=== PATIENT | male | born 1970 | race Two or more races ===

== ENCOUNTER 2018-10-01 15:10 | Inpatient (IN) | payer OTHER ==
[2018-10-01 19:14] VITALS: BMI 27.8
--- NOTE | 2018-10-01 19:49 | HP ---
COWS - Scale Resting Pulse: 1= ID [id number] Sweatin= Chills/Flushing Restless Observation: 1= Difficult to Sit Still Pupil Size: 1= Pupils >than Normal Bone or Joint Aches: 2= Severe Diffuse Aches Runny Nose/ Eye Tearin= Runny Nose/Eyes GI Upset > 30mins: 2= Nausea/Diarrhea Tremor Observation: 1= Tremor [place], Not Seen Yawning Observation: 1= 1-2x During Session Anxiety or Irritability: 1=Feels Anxious/Irritable Goose Flesh Skin: 0=Smooth Skin COWS Score: 13 CIWA Score - Admission Criteria [facility]ASAS Guidelines: Admission for Medically Managed Detox: Requires at least one of the followin. CIWA greater than 12 2. Seizures within the past 24 hours 3. Delirium tremens within the past 24 hours 4. Hallucinations within the past 24 hours 5. Acute intervention needed for co occurring medical disorder 6. Acute intervention needed for co occurring psychiatric disorder 7. Severe withdrawal that cannot be handled at a lower level of care (continued vomiting, continued diarrhea, abnormal vital signs) requiring intravenous medication and/or fluids 8. Admission [facility] - HPI Chief Complaint: here for heroin detox 47 yo with BPH and HTN. Was in a methadone program but stopped going about 3 weeks ago-"just stopped going" becuase of homelessness Using heroin 1 bundle a day, IV- injects in arms, 1 week ago OD "just woke up' Alcohol occ 6 pack of beer- but this is not a problem for pt cocaine- 1 gram a day THC- occ BZO- denies Allergies/Adverse Reactions: Allergies Allergy/AdvReac Type Severity Reaction Status Date / Time No Known Allergies Allergy Verified 10/01/18 19:01 - Ebola screening Have you traveled outside of the country in the last 21 days: No (N) Have you had contact with anyone from an Ebola affected area: No Do you have a fever: No Patient History - Patient Medical History Hx Asthma: No Hx Chronic Obstructive Pulmonary Disease (COPD): No Hx Cardiac Disorders: No Hx Hypertension: Yes (HTN- ) Hx Seizures: No Hx Diabetes: No Hx Gastrointestinal Disorders: No Hx Genitourinary Disorders: Yes (BPH) Hx Sexually Transmitted Disorders: No Hx Renal Disease (ESRD): No Hx Human Immunodeficiency Virus (HIV): No Hx Hepatitis C: No Hx Depression: No Hx Suicide Attempt: No Hx Schizophrenia: No - Patient Surgical History Past Surgical History: Yes Hx Neurologic Surgery: No Hx Cataract Extraction: No Hx Cardiac Surgery: No Hx Lung Surgery: No Hx Breast Surgery: No Hx Breast Biopsy: No Hx Abdominal Surgery: Yes (R inguinal hernia repair in 2009) Hx Appendectomy: No Hx Cholecystectomy: No Hx Genitourinary Surgery: No Hx Section: No Hx Orthopedic Surgery: No Anesthesia Reaction: No - PPD History Date: 10/03/11 - Smoking Cessation Smoking history: Current every day smoker Have you smoked in the past 12 months: Yes Aproximately how many cigarettes per day: 20 Hx Chewing Tobacco Use: No Initiated information on smoking cessation: Yes 'Breaking Loose' booklet given: 10/01/18 - Substance & Tx. History Substance Use Type: Alcohol, Cocaine, Heroin, Marijuana, Opiates Hx Substance Use Treatment: Yes - Substances abused Heroin Substance route: Injection Frequency: Daily Amount used: 1 bundle Age of first use: 15 Date of last use: 10/01/18 Cocaine Substance route: Injection Frequency: Daily Amount used: 40 dollars Age of first use: 15 Date of last use: 10/01/18 Crack Substance route: Smoking Frequency: Daily Amount used: 1 gram Age of first use: 15 Date of last use: 10/01/18 Alcohol Substance route: Smoking Frequency: Daily Amount used: 12 packs Age of first use: 13 Date of last use: 10/01/18 Family Disease History - Family Disease History Family History: Denies (denies) Admission Physical Exam BHS - Vital Signs Vital Signs: Vital Signs - 24 hr 10/01/18 19:07 Temperature 98.9 F Pulse Rate 68 Respiratory 20 Rate Blood Pressure 128/75 - Physical General Appearance: Yes: Within Normal Limits, Disheveled HEENTM: Yes: Within Normal Limits, Hearing grossly Normal, Normal Voice, ERICK Respiratory: Yes: Within Normal Limits, Lungs Clear Neck: Yes: Within Normal Limits Cardiology: Yes: Within Normal Limits, Regular Rhythm, Regular Rate, S1, S2, Surgical Scar Back: Yes: Within Normal Limits, Normal Inspection Musculoskeletal: Yes: Within Normal Limits, full range of Motion, Gait Steady Neurological: Yes: Within Normal Limits, track sweeper II-XII NML intact, Fully Oriented, Alert, Motor Strength 5/5, Normal Response Integumentary: Yes: Within Normal Limits, Normal Color, Track [place] - Diagnostic (1) Opioid use disorder Current Visit: Yes Status: Acute (2) Cocaine use disorder Current Visit: Yes Status: Acute (3) Hypertension Current Visit: Yes Status: Acute (4) BPH (benign prostatic hyperplasia) Current Visit: Yes Status: Acute (5) Cannabis abuse Current Visit: Yes Status: Acute (6) Alcohol use Current Visit: Yes Status: Acute Breathalyzer - Breathalyzer Breathalyzer: 0 Urine Drug Screen - Test Device Lot number: [id number] Expiration date: 09/21/19 - Control Is test valid?: Yes - Results Drug screen NEGATIVE: No Urine drug screen results: THC-Marijuana, BILL-Cocaine, FEN-Fentanyl, MOP-Opiates , MTD-Methadone, BZO-Benzodiazepines Inpatient Rehab Admission - Rehab Decision to Admit Inpatient rehab admission?: No
[2018-10-01] MEDS ORDERED: IBUPROFEN 400 MG TABLET (FP) PO PRN (19:51)
[2018-10-01] MEDS ORDERED: MAG HYDROX/AL HYDROX/SIMETH 30 ML UNIT-DOSE CUP PO PRN (19:51)
[2018-10-01] MEDS ORDERED: MELATONIN 5 MG TABLETS PO PRN (19:51)
[2018-10-01] MEDS ORDERED: METHOCARBAMOL 500 MG TABLET PO PRN (19:51)
[2018-10-01] MEDS ORDERED: MAGNESIUM CITRATE 300 ML BOTTLE PO PRN (19:51)
[2018-10-01] MEDS ORDERED: hydrOXYzine PAMOATE 25 MG CAPSULE (FP) PO PRN (19:51)
[2018-10-01] MEDS ORDERED: MAGNESIUM HYDROX 2400MG/30ML ORAL SUSPENSION 30 ML CUP PO PRN (19:51)
[2018-10-01] MEDS ORDERED: cloNIDine HCL 0.1 MG TABLET PO PRN (19:51)
[2018-10-01] MEDS ORDERED: BISMUTH SUBSALICYLATE 262 MG/15 ML BTL PO PRN (19:51)
[2018-10-01] MEDS ORDERED: MENTHOL/PHENOL 1 EACH UD MM PRN (19:51)
[2018-10-01] MEDS ORDERED: ACETAMINOPHEN 325 MG TABLET (FP) PO PRN ×2 (19:51)
[2018-10-01] MEDS ORDERED: NICOTINE POLACRILEX 4 MG GUM BUC PRN (19:51)
[2018-10-01] MEDS ORDERED: ONDANSETRON *ODT* 4 MG TABLET SL PRN (19:51)
[2018-10-01] MEDS ORDERED: METHADONE HCL 10 MG TABLET (FOR DETOX USE ONLY) PO ONE (23:00)
[2018-10-01] MEDS: THIAMINE HCL 100 MG TABLET (FP) PO SCH (23:27)
[2018-10-01 23:34] LABS: PH,URINE 6.5 (5.0-8.0); URINE APPEARANCE CLEAR; URINE BILIRUBIN NEGATIVE (NEGATIVE); URINE COLOR DK YELLOW; URINE GLUCOSE (UA) NEGATIVE (NEGATIVE); URINE KETONE TRACE (NEGATIVE); URINE LEUK ESTERASE NEGATIVE (NEGATIVE); URINE NITRITE NEGATIVE (NEGATIVE); URINE PROTEIN NEGATIVE (NEGATIVE)
[2018-10-02] MEDS: clonazePAM 0.5 MG TABLET PO PRN (01:24)
[2018-10-02] MEDS ORDERED: METHADONE HCL 10 MG TABLET (FOR DETOX USE ONLY) PO ONE (10:00)
[2018-10-02 10:16] LABS: HEMATOCRIT 37.7 % (35.4-49); HEMOGLOBIN 12.6 GM/dL (11.7-16.9); MCH 29.6 pg (25.7-33.7); MCHC 33.5 g/dl (32.0-35.9); MEAN CELL VOLUME 88.3 fl (80-96); MEAN PLT VOLUME 8.1 fl (7.5-11.1); PLATELET COUNT 230 K/MM3 (134-434); RBC 4.27 M/mm3 (4.00-5.60); RDW 13.4 % (11.9-15.9); WHITE BLOOD COUNT 8.7 K/mm3 (4.0-10.0)
[2018-10-02 10:19] LABS: ALBUMIN 3.2 g/dl (3.4-5.0); ALK PHOS 92 U/L (45-117); ANION GAP 3 MMOL/L (8-16); BILIRUBIN,TOTAL 0.2 mg/dL (0.2-1); BLOOD UREA NITROGEN 18 mg/dL (7-18); CALCIUM 8.7 mg/dL (8.5-10.1); CHLORIDE 110 mmol/L (98-107); CO2 28 mmol/L (21-32); CREATININE 0.8 mg/dL (0.55-1.3); GLUCOSE,RANDOM 100 mg/dL (74-106); SGOT/AST 38 U/L (15-37); SGPT/ALT 57 U/L (13-61); SODIUM 141 mmol/L (136-145); TOT PROT 6.9 g/dl (6.4-8.2)
[2018-10-02] MEDS: PRENATAL VITAMINS W/ FOLIC ACID TABLET (FP) PO SCH (11:21)
--- NOTE | 2018-10-02 11:40 | PN ---
BHS COWS - Scale Resting Pulse: 0= PA 80 or Below Sweatin=Flushed/Facial Moisture Restless Observation: 1= Difficult to Sit Still Pupil Size: 0= Normal to Room Light Bone or Joint Aches: 2= Severe Diffuse Aches Runny Nose/ Eye Tearin= Runny Nose/Eyes GI Upset > 30mins: 1= Stomach Cramp Tremor Observation of Outstretched Hands: 2= Slight Tremor Visible Yawning Observation: 2= >3x During Session Anxiety or Irritability: 2=Irritable/Anxious Goose Flesh Skin: 0=Smooth Skin COWS Score: 14 BHS Progress Note (SOAP) Subjective: sweats shakes interrupted sleep body aches irritable anxiety agitation Objective: 10/02/18 11:39 Vital Signs Temperature 97.7 F 10/02/18 09:23 Pulse Rate 79 10/02/18 09:23 Respiratory Rate 18 10/02/18 09:23 Blood Pressure 136/87 10/02/18 09:23 O2 Sat by Pulse Oximetry (%) Laboratory Tests 10/01/18 10/02/18 10/02/18 23:20 07:00 07:00 WBC 8.7 RBC 4.27 Hgb 12.6 Hct 37.7 MCV 88.3 MCH 29.6 MCHC 33.5 RDW 13.4 Plt Count 230 MPV 8.1 D Sodium 141 Potassium 4.0 Chloride 110 H Carbon Dioxide 28 Anion Gap 3 L BUN 18 Creatinine 0.8 Creat Clearance w eGFR 103.18 Random Glucose 100 Calcium 8.7 Total Bilirubin 0.2 AST 38 H ALT 57 Alkaline Phosphatase 92 Total Protein 6.9 Albumin 3.2 L Urine Color Dk yellow Urine Appearance Clear Urine pH 6.[address] 1.026 Urine Protein Negative Urine Glucose (UA) Negative Urine Ketones Trace H Urine Blood Negative Urine Nitrite Negative Urine Bilirubin Negative Urine Urobilinogen 1.0 Ur Leukocyte Esterase Negative RPR Titer 10/02/18 08:50 WBC RBC Hgb Hct MCV MCH MCHC RDW Plt Count MPV Sodium Potassium Chloride Carbon Dioxide Anion Gap BUN Creatinine Creat Clearance w eGFR Random Glucose Calcium Total Bilirubin AST ALT Alkaline Phosphatase Total Protein Albumin Urine Color Urine Appearance Urine pH Ur Specific [address] Urine Protein Urine Glucose (UA) Urine Ketones Urine Blood Urine Nitrite Urine Bilirubin Urine Urobilinogen Ur Leukocyte Esterase RPR Titer Nonreactive aaox3 ambulating no acute distress Assessment: 10/02/18 11:39 withdrawal sx Plan: continue detox increase fluids
[2018-10-02] MEDS: THIAMINE HCL 100 MG TABLET (FP) PO SCH (22:29)
[2018-10-03] MEDS ORDERED: METHADONE HCL 10 MG TABLET (FOR DETOX USE ONLY) PO ONE (10:00)
[2018-10-03] MEDS: PRENATAL VITAMINS W/ FOLIC ACID TABLET (FP) PO SCH (10:24)
[2018-10-03] MEDS ORDERED: BACLOFEN 10 MG TABLET (FP) PO ONE (12:22)
[2018-10-03] MEDS ORDERED: ALBUTEROL SO4 8 GM HFA INHALER IH PRN (12:23)
[2018-10-03] MEDS ORDERED: cloNIDine HCL 0.1 MG TABLET PO PRN (12:24)
[2018-10-03] MEDS ORDERED: LIDOCAINE 5% TOPICAL PATCH TP ONE (14:00)
--- NOTE | 2018-10-03 14:15 | PN ---
S COWS - Scale Resting Pulse: 1= [place] [id number] Sweatin=Flushed/Facial Moisture Restless Observation: 1= Difficult to Sit Still Pupil Size: 0= Normal to Room Light Bone or Joint Aches: 2= Severe Diffuse Aches Runny Nose/ Eye Tearin= Nasal Congestion GI Upset > 30mins: 0= None Tremor Observation of Outstretched Hands: 2= Slight Tremor Visible Yawning Observation: 1= 1-2x During Session Anxiety or Irritability: 2=Irritable/Anxious Goose Flesh Skin: 0=Smooth Skin COWS Score: 12 S Progress Note (SOAP) Subjective: body aches muscle spasms sweats interrupted sleep Objective: 10/03/18 14:15 Vital Signs Temperature 98.2 F 10/03/18 09:23 Pulse Rate 81 10/03/18 09:23 Respiratory Rate 20 10/03/18 09:23 Blood Pressure 156/87 10/03/18 09:23 O2 Sat by Pulse Oximetry (%) Laboratory Tests 10/01/18 10/02/18 10/02/18 23:20 07:00 07:00 WBC 8.7 RBC 4.27 Hgb 12.6 Hct 37.7 MCV 88.3 MCH 29.6 MCHC 33.5 RDW 13.4 Plt Count 230 MPV 8.1 D Sodium 141 Potassium 4.0 Chloride 110 H Carbon Dioxide 28 Anion Gap 3 L BUN 18 Creatinine 0.8 Creat Clearance w eGFR 103.18 Random Glucose 100 Calcium 8.7 Total Bilirubin 0.2 AST 38 H ALT 57 Alkaline Phosphatase 92 Total Protein 6.9 Albumin 3.2 L Urine Color Dk yellow Urine Appearance Clear Urine pH 6.5 Ur Specific [place] 1.026 Urine Protein Negative Urine Glucose (UA) Negative Urine Ketones Trace H Urine Blood Negative Urine Nitrite Negative Urine Bilirubin Negative Urine Urobilinogen 1.0 Ur Leukocyte Esterase Negative RPR Titer 10/02/18 08:50 WBC RBC Hgb Hct MCV MCH MCHC RDW Plt Count MPV Sodium Potassium Chloride Carbon Dioxide Anion Gap BUN Creatinine Creat Clearance w eGFR Random Glucose Calcium Total Bilirubin AST ALT Alkaline Phosphatase Total Protein Albumin Urine Color Urine Appearance Urine pH Ur Specific [place] Urine Protein Urine Glucose (UA) Urine Ketones Urine Blood Urine Nitrite Urine Bilirubin Urine Urobilinogen Ur Leukocyte Esterase RPR Titer Nonreactive aaox3 ambulating no acute distress Assessment: 10/03/18 14:15 withdrawal sx Plan: continue detox increase fluids lidocaine patch baclofen motrin prn
[2018-10-03] MEDS: TAMSULOSIN HCL 0.4 MG CAP PO SCH (14:29)
[2018-10-03] MEDS: amLODIPine BESYLATE 10 MG TABLET (FP) PO SCH (14:29)
[2018-10-03] MEDS: BACLOFEN 10 MG TABLET (FP) PO SCH ×2 (14:29→22:34)
[2018-10-03] MEDS: IBUPROFEN 600 MG TABLET (FP) PO PRN (19:35)
[2018-10-03] MEDS ORDERED: LIDOCAINE PATCH REMOVAL MC SCH (22:00)
[2018-10-03] MEDS: THIAMINE HCL 100 MG TABLET (FP) PO SCH (22:35)
[2018-10-04] MEDS: BACLOFEN 10 MG TABLET (FP) PO SCH ×2 (06:10→13:32)
[2018-10-04] MEDS: IBUPROFEN 600 MG TABLET (FP) PO PRN ×2 (06:13→14:49)
[2018-10-04] MEDS: TAMSULOSIN HCL 0.4 MG CAP PO SCH (07:32)
[2018-10-04] MEDS: PRENATAL VITAMINS W/ FOLIC ACID TABLET (FP) PO SCH (09:54)
[2018-10-04] MEDS: amLODIPine BESYLATE 10 MG TABLET (FP) PO SCH (09:54)
[2018-10-04] MEDS ORDERED: LIDOCAINE 5% TOPICAL PATCH TP SCH (10:00)
[2018-10-04] MEDS ORDERED: METHADONE HCL 10 MG TABLET (FOR DETOX USE ONLY) PO ONE (10:00)
[2018-10-04 11:26] VITALS: TEMP 98.1
--- NOTE | 2018-10-04 12:51 | PN ---
S Progress Note (SOAP) Subjective: N/V/D, tremors and sweats Objective: 10/04/18 12:50 Vital Signs - 8 hr 10/04/18 10/04/18 06:34 10:00 Temperature 97.3 F L 98.1 F Pulse Rate 65 92 H Respiratory 18 20 Rate Blood Pressure 137/85 139/89 Laboratory Last Values WBC 8.7 K/mm3 (4.0-10.0) 10/02/18 07:00 RBC 4.27 M/mm3 (4.00-5.60) 10/02/18 07:00 Hgb 12.6 GM/dL (11.7-16.9) 10/02/18 07:00 Hct 37.7 % (35.4-49) 10/02/18 07:00 MCV 88.3 fl (80-96) 10/02/18 07:00 MCH 29.6 pg (25.7-33.7) 10/02/18 07:00 MCHC 33.5 g/dl (32.0-35.9) 10/02/18 07:00 RDW 13.4 % (11.9-15.9) 10/02/18 07:00 Plt Count 230 K/MM3 (134-434) 10/02/18 07:00 MPV 8.1 fl (7.5-11.1) D 10/02/18 07:00 Sodium 141 mmol/L (136-145) 10/02/18 07:00 Potassium 4.0 mmol/L (3.5-5.1) 10/02/18 07:00 Chloride 110 mmol/L (98-107) H 10/02/18 07:00 Carbon Dioxide 28 mmol/L (21-32) 10/02/18 07:00 Anion Gap 3 MMOL/L (8-16) L 10/02/18 07:00 BUN 18 mg/dL (7-18) 10/02/18 07:00 Creatinine 0.8 mg/dL (0.55-1.3) 10/02/18 07:00 Creat Clearance w eGFR 103.18 (>60) 10/02/18 07:00 Random Glucose 100 mg/dL (74-106) 10/02/18 07:00 Calcium 8.7 mg/dL (8.5-10.1) 10/02/18 07:00 Total Bilirubin 0.2 mg/dL (0.2-1) 10/02/18 07:00 AST 38 U/L (15-37) H 10/02/18 07:00 ALT 57 U/L (13-61) 10/02/18 07:00 Alkaline Phosphatase 92 U/L (45-117) 10/02/18 07:00 Total Protein 6.9 g/dl (6.4-8.2) 10/02/18 07:00 Albumin 3.2 g/dl (3.4-5.0) L 10/02/18 07:00 Urine Color Dk yellow 10/01/18 23:20 Urine Appearance Clear 10/01/18 23:20 Urine pH 6.5 (5.0-8.0) 10/01/18 23:20 Ur Specific [place] 1.026 (1.010-1.035) 10/01/18 23:20 Urine Protein Negative (NEGATIVE) 10/01/18 23:20 Urine Glucose (UA) Negative (NEGATIVE) 10/01/18 23:20 Urine Ketones Trace (NEGATIVE) H 10/01/18 23:20 Urine Blood Negative (NEGATIVE) 10/01/18 23:20 Urine Nitrite Negative (NEGATIVE) 10/01/18 23:20 Urine Bilirubin Negative (NEGATIVE) 10/01/18 23:20 Urine Urobilinogen 1.0 mg/dL (0.2-1.0) 10/01/18 23:20 Ur Leukocyte Esterase Negative (NEGATIVE) 10/01/18 23:20 RPR Titer Nonreactive (NONREACTIVE) 10/02/18 08:50 Labs noted Assessment: Withdrawal sx 10/04/18 12:50 Plan: Continue detox
[2018-10-04 14:31] VITALS: BP 125/74; PULSE 80
[2018-10-04] MEDS: clonazePAM 0.5 MG TABLET PO PRN (14:49)
--- NOTE | 2018-10-04 17:51 | PN ---
S Progress Note Note: patient did not want to complete treatment,signed release ama,high chance of relapsing, advise to to go to emergency room if any problem
--- NOTE | 2018-10-04 17:54 | DS ---
[facility] Detox Discharge Summary Admission Date: 10/01/18 Discharge Date: 10/04/18 - History Present History: Alcohol Dependence, Cannabis Dependence, Cocaine Dependence, Opioid Dependence Additional Comments: patient signed release ama Pertinent Past History: hypertension bph - Physical Exam Results Vital Signs: Vital Signs Temperature 98.1 F 10/04/18 14:30 Pulse Rate 80 10/04/18 14:30 Respiratory Rate 18 10/04/18 14:30 Blood Pressure 125/74 10/04/18 14:30 O2 Sat by Pulse Oximetry (%) Pertinent Admission Physical Exam Findings: withdrawal symptom Vital Signs Temperature 98.1 F 10/04/18 14:30 Pulse Rate 80 10/04/18 14:30 Respiratory Rate 18 10/04/18 14:30 Blood Pressure 125/74 10/04/18 14:30 O2 Sat by Pulse Oximetry (%) Laboratory Last Values WBC 8.7 K/mm3 (4.0-10.0) 10/02/18 07:00 RBC 4.27 M/mm3 (4.00-5.60) 10/02/18 07:00 Hgb 12.6 GM/dL (11.7-16.9) 10/02/18 07:00 Hct 37.7 % (35.4-49) 10/02/18 07:00 MCV 88.3 fl (80-96) 10/02/18 07:00 MCH 29.6 pg (25.7-33.7) 10/02/18 07:00 MCHC 33.5 g/dl (32.0-35.9) 10/02/18 07:00 RDW 13.4 % (11.9-15.9) 10/02/18 07:00 Plt Count 230 K/MM3 (134-434) 10/02/18 07:00 MPV 8.1 fl (7.5-11.1) D 10/02/18 07:00 Sodium 141 mmol/L (136-145) 10/02/18 07:00 Potassium 4.0 mmol/L (3.5-5.1) 10/02/18 07:00 Chloride 110 mmol/L (98-107) H 10/02/18 07:00 Carbon Dioxide 28 mmol/L (21-32) 10/02/18 07:00 Anion Gap 3 MMOL/L (8-16) L 10/02/18 07:00 BUN 18 mg/dL (7-18) 10/02/18 07:00 Creatinine 0.8 mg/dL (0.55-1.3) 10/02/18 07:00 Creat Clearance w eGFR 103.18 (>60) 10/02/18 07:00 Random Glucose 100 mg/dL (74-106) 10/02/18 07:00 Calcium 8.7 mg/dL (8.5-10.1) 10/02/18 07:00 Total Bilirubin 0.2 mg/dL (0.2-1) 10/02/18 07:00 AST 38 U/L (15-37) H 10/02/18 07:00 ALT 57 U/L (13-61) 10/02/18 07:00 Alkaline Phosphatase 92 U/L (45-117) 10/02/18 07:00 Total Protein 6.9 g/dl (6.4-8.2) 10/02/18 07:00 Albumin 3.2 g/dl (3.4-5.0) L 10/02/18 07:00 Urine Color Dk yellow 10/01/18 23:20 Urine Appearance Clear 10/01/18 23:20 Urine pH 6.5 (5.0-8.0) 10/01/18 23:20 Ur Specific [place] 1.026 (1.010-1.035) 10/01/18 23:20 Urine Protein Negative (NEGATIVE) 10/01/18 23:20 Urine Glucose (UA) Negative (NEGATIVE) 10/01/18 23:20 Urine Ketones Trace (NEGATIVE) H 10/01/18 23:20 Urine Blood Negative (NEGATIVE) 10/01/18 23:20 Urine Nitrite Negative (NEGATIVE) 10/01/18 23:20 Urine Bilirubin Negative (NEGATIVE) 10/01/18 23:20 Urine Urobilinogen 1.0 mg/dL (0.2-1.0) 10/01/18 23:20 Ur Leukocyte Esterase Negative (NEGATIVE) 10/01/18 23:20 RPR Titer Nonreactive (NONREACTIVE) 10/02/18 08:50 - Medication Discharge Medications: Ambulatory Orders Albuterol Sulfate Inhaler - [Ventolin Hfa Inhaler -] 2 inh PO Q4H PRN 10/01/18 Amlodipine Besylate [Norvasc -] 10 mg PO DAILY 10/01/18 Folic Acid 1 mg PO DAILY 10/01/18 Quetiapine Fumarate [Seroquel] 100 mg PO HS 10/01/18 Tamsulosin HCl [Flomax] 0.4 mg PO DAILY 10/01/18 Thiamine HCl [Vitamin B-1] 100 mg PO DAILY 10/01/18 - AMA Did Patient Leave Against Medical Advice: Yes
[2018-10-05] MEDS ORDERED: METHADONE HCL 5 MG TABLET (FOR DETOX USE ONLY) PO ONE (06:00)
== END 2018-10-04 17:30 | disposition left against medical advice (07) | DRG 770 ==
LOC: YASAS 15:10 → Y6N 20:11
PROVIDERS: ADMIT Surgery; ATTEND Surgery
PROC: HZ2ZZZZ Detoxification Services for Substance Abuse Treatment (ICD-10-PCS; principal; 2018-10-01)
DX: F11.23 Opioid dependence with withdrawal (principal); F10.230 Alcohol dependence with withdrawal, uncomplicated; F14.20 Cocaine dependence, uncomplicated; F12.20 Cannabis dependence, uncomplicated; I10 Essential (primary) hypertension; N40.0 Benign prostatic hyperplasia without lower urinary tract symptoms
CPT/HCPCS: 36415; 80053; 81003; 85027; 86593; J0475; J0735

== ENCOUNTER 2018-11-28 08:26 | Inpatient (IN) | payer BC ==
--- NOTE | 2018-11-28 10:05 | HP ---
COWS - Scale Resting Pulse: 0= NM 80 or Below Sweatin= No chills or Flushing Restless Observation: 1= Difficult to Sit Still Pupil Size: 0= Normal to Room Light Bone or Joint Aches: 1= Mild Discomfort Runny Nose/ Eye Tearin= None GI Upset > 30mins: 2= Nausea/Diarrhea Tremor Observation: 0= None Yawning Observation: 0= None Anxiety or Irritability: 2=Irritable/Anxious Goose Flesh Skin: 0=Smooth Skin COWS Score: 6 CIWA Score Nausea/Vomitin Muscle Tremors: None Anxiety: 0-No Anxiety, at Ease Agitation: 4-Moderately Restless Paroxysmal Sweats: No Perspiration Orientation: 0-Oriented Tacttile Disturbances: 2-Mild Itch/Numbness/Burn Auditory Disturbances: 0-None Visual Disturbances: 0-None Headache: 0-None Present CIWA-Ar Total Score: 9 - Admission Criteria OASAS Guidelines: Admission for Medically Managed Detox: Requires at least one of the followin. CIWA greater than 12 2. Seizures within the past 24 hours 3. Delirium tremens within the past 24 hours 4. Hallucinations within the past 24 hours 5. Acute intervention needed for co occurring medical disorder 6. Acute intervention needed for co occurring psychiatric disorder 7. Severe withdrawal that cannot be handled at a lower level of care (continued vomiting, continued diarrhea, abnormal vital signs) requiring intravenous medication and/or fluids 8. Admission ROS [facility] Allergies/Adverse Reactions: Allergies Allergy/AdvReac Type Severity Reaction Status Date / Time No Known Allergies Allergy Verified 11/28/18 08:58 History of Present Illness: Search Terms: enrike campbell, 1970 Search Date: 11/28/2018 09:50:03 AM The Drug Utilization Report below displays all of the controlled substance prescriptions, if any, that your patient has filled in the last twelve months. The information displayed on this report is compiled from pharmacy submissions to the Department, and accurately reflects the information as submitted by the pharmacies. This report was requested by: Manasa Beckford | Reference #: [id number] Others' Prescriptions Patient Name: Enrike Campbell Date: 1970 Address: [place] [address] Sex: Male Rx Written Rx Dispensed Drug Quantity Days Supply Prescriber Name 11/06/2018 11/06/2018 buprenorphine-naloxone 8-2 mg sl film 60 30 Hedrick, Angela [employer] 11/04/2018 11/04/2018 buprenorphine-naloxone 12-3 mg sl film 14 14 Luís Soliz) 10/30/2018 10/30/2018 buprenorphine-naloxone 8-2 mg sl film 14 14 Angela Hedrick NP 10/27/2018 10/27/2018 diazepam 10 mg tablet 5 5 Luís Soliz) 10/27/2018 10/27/2018 buprenorphine-naloxone 4-1 mg sl film 12 6 Luís Soliz () Patient Name: Enrike Campbell Date: 1970 Address: [address] [place] [address] Sex: Male Rx Written Rx Dispensed Drug Quantity Days Supply Prescriber Name 06/21/2018 07/05/2018 dextroamp-amphetamin 30 mg tab 60 30 ValbrunLew MD 06/21/2018 07/03/2018 zolpidem tartrate 10 mg tablet 30 30 ValbrunLew MD 06/21/2018 07/03/2018 alprazolam 2 mg tablet 60 30 ValbrunLew MD 05/17/2018 05/17/2018 alprazolam 2 mg tablet 60 30 ValbrunLew MD 05/17/2018 05/17/2018 zolpidem tartrate 10 mg tablet 30 30 ValbrLew phelps MD 05/17/2018 05/17/2018 dextroamp-amphetamin 30 mg tab 60 30 ValbrunLew MD 04/12/2018 04/12/2018 alprazolam 2 mg tablet 60 30 ValbrunLew MD 04/12/2018 04/12/2018 dextroamp-amphetamin 30 mg tab 60 30 ValbrunLew MD 04/12/2018 04/12/2018 zolpidem tartrate 10 mg tablet 30 30 ValbrLew phelps MD 02/01/2018 02/01/2018 alprazolam 2 mg tablet 60 30 ValbrLew phelps MD 02/01/2018 02/01/2018 zolpidem tartrate 10 mg tablet 30 30 ValbrunLew MD 02/01/2018 02/01/2018 dextroamp-amphetamin 30 mg tab 60 30 ValbrLew phelps MD 12/28/2017 01/04/2018 dextroamp-amphetamin 30 mg tab 60 30 Lew Raplh MD 12/28/2017 01/04/2018 alprazolam 2 mg tablet 60 30 ValLew diop MD 12/28/2017 01/04/2018 zolpidem tartrate 10 mg tablet 30 30 ValbrLew phelps MD 12/07/2017 12/07/2017 alprazolam 2 mg tablet 60 30 ValbrunLew MD 12/07/2017 12/07/2017 zolpidem tartrate 10 mg tablet 30 30 ValbrunLew MD 12/07/2017 12/07/2017 dextroamp-amphetamin 30 mg tab 60 30 Lew Ralph MD pt here requesting detox from heroin use , reports use since 1987 , current daily use 2 bundles /day ivdu in [place]anisha ue , needles from [facility] , denies sharing , denies re-using , + abscess most recently > 1 year ago , OD x 3 most recently " I don't remember " . Pt is very guarded and evasive when answering questions , after prompting mostly answers " I don't remember " . Queried about [employer] above , initially denies rx , then admits to having Suboxone and taking it , latest 2 days ago . Latest heroin use yesterday late evening " I still have it in my system , the symptoms are just starting " MMTP : " I don't remember , probably 6 mo ago " @ [facility] , highest dose 90 mg , stopped going cocaine : 1 gr /day ivdu cannabis : occasional tobacco : 1 ppd oxy- denies fentanyl - denies methadone- denies denies xanax use etoh use : 12-pk beer every day x 1 year , starts drinking around noon , reports cravings , irritability , denies tremors , + blackouts , denies seizures , latest use last night , current symptoms as above. PMHX : htn dx " a few years " on meds , BPH PSHX : tanisha inguinal hernia , pancreatic cyst 2012 ( [facility] ) PSych : ptsd , depression , anxiety - past meds Seroquel while in rehab SHX : homeless , unemployed , denies legal issues , fiances habit through [facility] - handling Exam Limitations: No Limitations - Ebola screening Have you traveled outside of the country in the last 21 days: No (N) Have you had contact with anyone from an Ebola affected area: No Do you have a fever: No - Review of Systems Constitutional: See HPI EENT: reports: See HPI Respiratory: reports: No Symptoms reported Cardiac: reports: No Symptoms Reported GI: reports: See HPI : reports: Other (bph - hesitancy) Musculoskeletal: reports: See HPI Neuro: reports: See HPI Endocrine: reports: No Symptoms Reported Psychiatric: reports: Mood/Affect Appropiate, Orientated x3, Anxious Patient History - Patient Medical History Hx Asthma: No Hx Chronic Obstructive Pulmonary Disease (COPD): No Hx Cardiac Disorders: No Hx Hypertension: Yes (HTN- ) Hx Seizures: No Hx Diabetes: No Hx Gastrointestinal Disorders: No Hx Genitourinary Disorders: Yes (BPH) Hx Sexually Transmitted Disorders: No Hx Renal Disease (ESRD): No Hx Human Immunodeficiency Virus (HIV): No Hx Hepatitis C: No Hx Depression: No Hx Suicide Attempt: No Hx Schizophrenia: No - Patient Surgical History Past Surgical History: Yes Hx Neurologic Surgery: No Hx Cataract Extraction: No Hx Cardiac Surgery: No Hx Lung Surgery: No Hx Breast Surgery: No Hx Breast Biopsy: No Hx Abdominal Surgery: Yes (R inguinal hernia repair in 2008) Hx Appendectomy: No Hx Cholecystectomy: No Hx Genitourinary Surgery: No Hx Section: No Hx Orthopedic Surgery: No Anesthesia Reaction: No - PPD History Date: 10/03/11 - Smoking Cessation Smoking history: Current every day smoker Have you smoked in the past 12 months: Yes Aproximately how many cigarettes per day: 20 Hx Chewing Tobacco Use: No Initiated information on smoking cessation: No - Substances abused Heroin Substance route: Injection Frequency: Daily Amount used: 2 bundle Age of first use: 15 Date of last use: 11/27/18 Cocaine Substance route: Injection Frequency: Daily Amount used: 40 dollars Age of first use: 15 Date of last use: 11/27/18 Crack Substance route: Smoking Frequency: Daily Amount used: 1 gram Age of first use: 15 Date of last use: 11/27/18 Alcohol Substance route: Oral Frequency: Daily Amount used: 12 packs Age of first use: 13 Date of last use: 11/27/18 Family Disease History - Family Disease History Family History: Denies Admission Physical Exam BHS - Vital Signs Vital Signs: Vital Signs - 24 hr 11/28/18 08:46 Temperature 96.6 F L Pulse Rate 73 Respiratory 18 Rate Blood Pressure 129/73 - Physical General Appearance: Yes: Disheveled, Mild Distress, Irritable, Anxious, Other ( drowsy , falls asleep frequently during interview , awakened by verbal stimuli) HEENTM: Yes: EOMI, Hearing grossly Normal, Normocephalic, Normal Voice Respiratory: Yes: Chest Non-Tender, Lungs Clear, Normal Breath Sounds, No Respiratory Distress, No Accessory Muscle Use Neck: Yes: No masses,lesions,Nodules, Trachea in good position Cardiology: Yes: Regular Rhythm, Regular Rate, S1, S2 Abdominal: Yes: Non Tender, Soft Musculoskeletal: Yes: full range of Motion Extremities: Yes: Normal Range of Motion, Non-Tender Neurological: Yes: Fully Oriented, Motor Strength 5/5, Other (drowsy , falls askeep frequently during interview, awakened by verbal stimuli) Integumentary: Yes: Warm, Track Alfaro (tanisha UE , LE) - Diagnostic (1) Alcohol use Current Visit: Yes Status: Chronic (2) Opioid use disorder Current Visit: Yes Status: Chronic (3) Nicotine dependence Current Visit: Yes Status: Chronic Qualifiers: Nicotine product type: cigarettes (4) Cocaine use disorder Current Visit: Yes Status: Chronic Breathalyzer - Breathalyzer Breathalyzer: 0 Urine Drug Screen - Test Device Lot number: [id number] Expiration date: 08/21/20 - Control Is test valid?: Yes - Results Drug screen NEGATIVE: No Urine drug screen results: THC-Marijuana, BILL-Cocaine, FEN-Fentanyl, MOP-Opiates , OXY-Oxycodone, MTD-Methadone, BZO-Benzodiazepines, BUP-Suboxone Inpatient Rehab Admission - Rehab Decision to Admit Inpatient rehab admission?: No
[2018-11-28] MEDS ORDERED: chlordiazePOXIDE HCL 10 MG CAPSULE PO PRN (11:01)
[2018-11-28] MEDS ORDERED: MENTHOL/PHENOL 1 EACH UD MM PRN (11:01)
[2018-11-28] MEDS ORDERED: MAG HYDROX/AL HYDROX/SIMETH 30 ML UNIT-DOSE CUP PO PRN (11:01)
[2018-11-28] MEDS ORDERED: IBUPROFEN 400 MG TABLET (FP) PO PRN (11:01)
[2018-11-28] MEDS ORDERED: ACETAMINOPHEN 325 MG TABLET (FP) PO PRN ×2 (11:01)
[2018-11-28] MEDS ORDERED: METHOCARBAMOL 500 MG TABLET PO PRN (11:01)
[2018-11-28] MEDS ORDERED: MAGNESIUM HYDROX 2400MG/30ML ORAL SUSPENSION 30 ML CUP PO PRN (11:01)
[2018-11-28] MEDS ORDERED: BISMUTH SUBSALICYLATE 524 MG/30 ML UD PO PRN (11:01)
[2018-11-28] MEDS ORDERED: MAGNESIUM CITRATE 300 ML BOTTLE PO PRN (11:01)
[2018-11-28] MEDS ORDERED: NICOTINE POLACRILEX 2 MG GUM BUC PRN (11:01)
[2018-11-28] MEDS ORDERED: hydrOXYzine PAMOATE 25 MG CAPSULE (FP) PO PRN (11:01)
[2018-11-28] MEDS ORDERED: ALBUTEROL SO4 0.083% IH SOL 2.5 MG/3 ML VIAL.NEB. NEB PRN (11:03)
[2018-11-28] MEDS: chlordiazePOXIDE HCL 25 MG CAPSULE PO SCH ×2 (12:21→22:38)
[2018-11-28] MEDS: MELATONIN 5 MG TABLETS PO PRN (22:38)
[2018-11-28] MEDS: THIAMINE HCL 100 MG TABLET (FP) PO SCH (23:11)
[2018-11-29] MEDS: chlordiazePOXIDE HCL 25 MG CAPSULE PO SCH (06:13)
[2018-11-29] MEDS: BUPRENORPHINE/NALOXONE 8 MG/2 MG FILM PACKET SL SCH (10:07)
[2018-11-29] MEDS: amLODIPine BESYLATE 10 MG TABLET (FP) PO SCH (10:07)
[2018-11-29] MEDS: TAMSULOSIN HCL 0.4 MG CAP PO SCH (10:07)
[2018-11-29] MEDS: PRENATAL VITAMINS W/ FOLIC ACID TABLET (FP) PO SCH (10:07)
[2018-11-29 10:43] LABS: BILIRUBIN,TOTAL 0.3 mg/dL (0.2-1); BLOOD UREA NITROGEN 17.4 mg/dL (7-18); CALCIUM 8.4 mg/dL (8.5-10.1); CREATININE 1.1 mg/dL (0.55-1.3); TOT PROT 6.8 g/dl (6.4-8.2)
[2018-11-29 11:53] LABS: HEMATOCRIT 36.4 % (35.4-49); HEMOGLOBIN 12.2 GM/dL (11.7-16.9); MCH 29.2 pg (25.7-33.7); MCHC 33.3 g/dl (32.0-35.9); MEAN CELL VOLUME 87.6 fl (80-96); MEAN PLT VOLUME 8.7 fl (7.5-11.1); RBC 4.16 M/mm3 (4.00-5.60); RDW 14.3 % (11.9-15.9); WHITE BLOOD COUNT 6.7 K/mm3 (4.0-10.0)
[2018-11-29] MEDS: chlordiazePOXIDE 5 MG CAPSULE PO SCH ×2 (13:38→23:10)
[2018-11-29 17:01] LABS: PLATELET COUNT 234 K/MM3 (134-434)
[2018-11-29] MEDS: THIAMINE HCL 100 MG TABLET (FP) PO SCH (23:09)
[2018-11-29] MEDS: MELATONIN 5 MG TABLETS PO PRN (23:10)
[2018-11-30] MEDS: chlordiazePOXIDE 5 MG CAPSULE PO SCH (05:29)
[2018-11-30] MEDS ORDERED: LIDOCAINE 5% TOPICAL PATCH TP SCH (10:00)
[2018-11-30] MEDS: amLODIPine BESYLATE 10 MG TABLET (FP) PO SCH (10:03)
[2018-11-30] MEDS: TAMSULOSIN HCL 0.4 MG CAP PO SCH (10:03)
[2018-11-30] MEDS: BUPRENORPHINE/NALOXONE 8 MG/2 MG FILM PACKET SL SCH (10:03)
[2018-11-30] MEDS: PRENATAL VITAMINS W/ FOLIC ACID TABLET (FP) PO SCH (10:03)
--- NOTE | 2018-11-30 11:42 | PN ---
S CIWA - CIWA Score Nausea/Vomitin-Mild Nausea/No Vomiting Muscle Tremors: 4-Moderate,w/Arms Extend Anxiety: 4-Mod. Anxious/Guarded Agitation: 4-Moderately Restless Paroxysmal Sweats: 3 Orientation: 0-Oriented Tacttile Disturbances: 0-None Auditory Disturbances: 0-None Visual Disturbances: 0-None Headache: 0-None Present CIWA-Ar Total Score: 16 BHS Progress Note (SOAP) Subjective: Back pain, sweating, chills, tremor, interrupted sleep, anxious Objective: 11/30/18 11:39 Last Vital Signs Temp Pulse Resp BP Pulse Ox 97.7 F 79 18 135/77 11/30/18 09:08 11/30/18 09:08 11/30/18 09:08 11/30/18 09:08 Elevated b/p: has htn, on medication Laboratory Tests 11/29/18 11/29/18 11/29/18 08:00 08:00 08:00 WBC 6.7 RBC 4.16 Hgb 12.2 Hct 36.4 MCV 87.6 MCH 29.2 MCHC 33.3 RDW 14.3 Plt Count 234 MPV 8.7 Sodium 142 Potassium 4.0 Chloride 109 H Carbon Dioxide 26 Anion Gap 7 L BUN 17.4 Creatinine 1.1 Est GFR (CKD-EPI)AfAm 91.52 Est GFR (CKD-EPI)NonAf 78.96 Random Glucose 114 H Calcium 8.4 L Total Bilirubin 0.3 AST 35 ALT 53 Alkaline Phosphatase 112 Total Protein 6.8 Albumin 3.0 L RPR Titer Nonreactive HIV 1&2 Antibody Screen HIV P24 Antigen 11/29/18 08:00 WBC RBC Hgb Hct MCV MCH MCHC RDW Plt Count MPV Sodium Potassium Chloride Carbon Dioxide Anion Gap BUN Creatinine Est GFR (CKD-EPI)AfAm Est GFR (CKD-EPI)NonAf Random Glucose Calcium Total Bilirubin AST ALT Alkaline Phosphatase Total Protein Albumin RPR Titer HIV 1&2 Antibody Screen Negative HIV P24 Antigen Negative Labs reviewed Assessment: 11/30/18 11:42 Withdrawal symptoms Plan: Continue detox Encouraged PO water hydration Lidocaine patch 5% q24hr ordered for back pain
[2018-11-30] MEDS ORDERED: chlordiazePOXIDE HCL 10 MG CAPSULE PO SCH (13:00)
[2018-11-30] MEDS ORDERED: chlordiazePOXIDE HCL 10 MG CAPSULE PO PRN (13:00)
[2018-11-30 17:19] VITALS: BP 138/77; PULSE 71; TEMP 100
--- NOTE | 2018-11-30 19:16 | PN ---
BHS CIWA - CIWA Score Nausea/Vomitin Muscle Tremors: 2 Anxiety: 2 Agitation: 2 Paroxysmal Sweats: 1-Minimal Palms Moist Orientation: 0-Oriented Tacttile Disturbances: 1-Very Mild Itch/Numbness Auditory Disturbances: 1-Very Mild Visual Disturbances: 0-None Headache: 2-Mild CIWA-Ar Total Score: 13 BHS Progress Note (SOAP) Subjective: alert,irritable,anxious,tremor,pain in the body and back Objective: 11/30/18 19:14 t97.9,p87,r20,bp 127/102 Assessment: 11/30/18 19:15 withdrawal symptom Plan: continue detox,bp monitoring
--- NOTE | 2018-11-30 19:20 | DS ---
[facility] Detox Discharge Summary Admission Date: 11/28/18 Discharge Date: 11/30/18 - History Present History: Alcohol Dependence, Cannabis Dependence, Cocaine Dependence, Opioid Dependence Additional Comments: patient signed release ama Pertinent Past History: asthma hypertension bph suboxone maintenance - Physical Exam Results Vital Signs: Vital Signs Temperature 100.0 F H 11/30/18 17:17 Pulse Rate 71 11/30/18 17:17 Respiratory Rate 16 11/30/18 17:17 Blood Pressure 138/77 11/30/18 17:17 O2 Sat by Pulse Oximetry (%) Pertinent Admission Physical Exam Findings: withdrawal signs and symptom Vital Signs Temperature 100.0 F H 11/30/18 17:17 Pulse Rate 71 11/30/18 17:17 Respiratory Rate 16 11/30/18 17:17 Blood Pressure 138/77 11/30/18 17:17 O2 Sat by Pulse Oximetry (%) Laboratory Last Values WBC 6.7 K/mm3 (4.0-10.0) 11/29/18 08:00 RBC 4.16 M/mm3 (4.00-5.60) 11/29/18 08:00 Hgb 12.2 GM/dL (11.7-16.9) 11/29/18 08:00 Hct 36.4 % (35.4-49) 11/29/18 08:00 MCV 87.6 fl (80-96) 11/29/18 08:00 MCH 29.2 pg (25.7-33.7) 11/29/18 08:00 MCHC 33.3 g/dl (32.0-35.9) 11/29/18 08:00 RDW 14.3 % (11.9-15.9) 11/29/18 08:00 Plt Count 234 K/MM3 (134-434) 11/29/18 08:00 MPV 8.7 fl (7.5-11.1) 11/29/18 08:00 Sodium 142 mmol/L (136-145) 11/29/18 08:00 Potassium 4.0 mmol/L (3.5-5.1) 11/29/18 08:00 Chloride 109 mmol/L (98-107) H 11/29/18 08:00 Carbon Dioxide 26 mmol/L (21-32) 11/29/18 08:00 Anion Gap 7 MMOL/L (8-16) L 11/29/18 08:00 BUN 17.4 mg/dL (7-18) 11/29/18 08:00 Creatinine 1.1 mg/dL (0.55-1.3) 11/29/18 08:00 Est GFR (CKD-EPI)AfAm 91.52 11/29/18 08:00 Est GFR (CKD-EPI)NonAf 78.96 11/29/18 08:00 Random Glucose 114 mg/dL (74-106) H 11/29/18 08:00 Calcium 8.4 mg/dL (8.5-10.1) L 11/29/18 08:00 Total Bilirubin 0.3 mg/dL (0.2-1) 11/29/18 08:00 AST 35 U/L (15-37) 11/29/18 08:00 ALT 53 U/L (13-61) 11/29/18 08:00 Alkaline Phosphatase 112 U/L (45-117) 11/29/18 08:00 Total Protein 6.8 g/dl (6.4-8.2) 11/29/18 08:00 Albumin 3.0 g/dl (3.4-5.0) L 11/29/18 08:00 RPR Titer Nonreactive (NONREACTIVE) 11/29/18 08:00 HIV 1&2 Antibody Screen Negative 11/29/18 08:00 HIV P24 Antigen Negative 11/29/18 08:00 - Medication Discharge Medications: Ambulatory Orders Albuterol Sulfate Inhaler - [Ventolin HFA Inhaler -] 2 inh PO Q4H PRN 10/01/18 Amlodipine Besylate [Norvasc -] 10 mg PO DAILY 10/01/18 Folic Acid 1 mg PO DAILY 10/01/18 Quetiapine Fumarate [Seroquel] 100 mg PO HS 10/01/18 Tamsulosin HCl [Flomax] 0.4 mg PO DAILY 10/01/18 Thiamine HCl [Vitamin B-1] 100 mg PO DAILY 10/01/18 - AMA Did Patient Leave Against Medical Advice: Yes
--- NOTE | 2018-11-30 19:20 | PN ---
[facility] Progress Note Note: informed by nurse patient did not want to complete treatment,all attempts to convince patient to stay with no avail,high risk of relapsing explained, patient understood,seen by counselor,signed release ama,advise to go to nearest emergency room or 911 if not feeling well
[2018-11-30] MEDS ORDERED: LIDOCAINE PATCH REMOVAL MC SCH (22:00)
== END 2018-11-30 19:25 | disposition left against medical advice (07) | DRG 770 ==
LOC: YASAS 08:26 → Y6N 11:18
PROVIDERS: ADMIT Surgery; ATTEND Surgery
PROC: HZ2ZZZZ Detoxification Services for Substance Abuse Treatment (ICD-10-PCS; principal; 2018-11-28)
DX: F10.230 Alcohol dependence with withdrawal, uncomplicated (principal); F11.20 Opioid dependence, uncomplicated; F13.20 Sedative, hypnotic or anxiolytic dependence, uncomplicated; F14.20 Cocaine dependence, uncomplicated; F12.20 Cannabis dependence, uncomplicated; F41.8 Other specified anxiety disorders; F31.9 Bipolar disorder, unspecified; I10 Essential (primary) hypertension; J45.909 Unspecified asthma, uncomplicated; N40.1 Benign prostatic hyperplasia with lower urinary tract symptoms; R39.11 Hesitancy of micturition
CPT/HCPCS: 36415; 80053; 85027; 86593; 87389

== ENCOUNTER 2019-02-13 16:45 | Inpatient (IN) | payer BC ==
[2019-02-13 18:05] VITALS: BMI 25.1
--- NOTE | 2019-02-13 19:12 | HP ---
COWS - Scale Resting Pulse: 0= [place] 80 or Below Sweatin=Flushed/Facial Moisture Restless Observation: 0= Sits Still Pupil Size: 0= Normal to Room Light Bone or Joint Aches: 4=Acute Joint/Muscle Pain Runny Nose/ Eye Tearin= Runny Nose/Eyes GI Upset > 30mins: 2= Nausea/Diarrhea Tremor Observation: 1= Tremor [place], Not Seen Yawning Observation: 1= 1-2x During Session Anxiety or Irritability: 2=Irritable/Anxious Goose Flesh Skin: 0=Smooth Skin COWS Score: 14 CIWA Score - Admission Criteria OASAS Guidelines: Admission for Medically Managed Detox: Requires at least one of the followin. CIWA greater than 12 2. Seizures within the past 24 hours 3. Delirium tremens within the past 24 hours 4. Hallucinations within the past 24 hours 5. Acute intervention needed for co occurring medical disorder 6. Acute intervention needed for co occurring psychiatric disorder 7. Severe withdrawal that cannot be handled at a lower level of care (continued vomiting, continued diarrhea, abnormal vital signs) requiring intravenous medication and/or fluids 8. Admission ROS [facility] Chief Complaint: C/O WITHDRAWAL SX'S. SEEKING DETOX Allergies/Adverse Reactions: Allergies Allergy/AdvReac Type Severity Reaction Status Date / Time No Known Allergies Allergy Verified 02/13/19 17:56 History of Present Illness: 48 Y.O. MALE WITH OPIOID DEPENDENCE HERE FOR DETOX. CLIENT IS SELF REFERRED HE IS KNOWN TO THIS PROGRAM. HIS DRUG OF CHOICE IS HEROIN AND COCAINE. HE REPORTS DAILY USE OF HEROIN. LAST USE THIS MORNING. PRESENTS NOW WITH C/O WITHDRAWAL SX'S. IVDU,+ HX/O OVERDOSE, DENIES SZ D/O. LONGEST CLEAN TIME 2 YEARS. RELAPSING IN 2014. DENIES CLEAN TIME SINCE. HOMELESS, UNEMPLOYED- PANHANDLING, DENIES LEGALS Exam Limitations: No Limitations - Ebola screening Have you traveled outside of the country in the last 21 days: No (N) Have you had contact with anyone from an Ebola affected area: No Do you have a fever: No - Review of Systems Constitutional: Chills, Malaise, Night Sweats, Changes in sleep, Unintentional Wgt. Loss EENT: reports: Nose Congestion (RUNNY NOSE), Other (WATERY EYES) Respiratory: reports: No Symptoms reported Cardiac: reports: No Symptoms Reported GI: reports: Diarrhea, Nausea, Poor Appetite, Poor Fluid Intake, Vomiting, Abdominal cramping : reports: Other (HESITANCY DUE TO ENLARGED PROSTATE) Musculoskeletal: reports: Back Pain, Joint Pain, Neck Pain Integumentary: reports: Sweating Neuro: reports: Numbness (FINGERS AND FEET) Endocrine: reports: No Symptoms Reported Hematology: reports: No Symptoms Reported Psychiatric: reports: Agitated (IRRITABLE), Depressed (DENIES SI) Other Systems: Reviewed and Negative Patient History - Patient Medical History Hx Anemia: No Hx Asthma: No Hx Chronic Obstructive Pulmonary Disease (COPD): No Hx Cancer: No Hx Cardiac Disorders: No Hx Congestive Heart Failure: No Hx Hypertension: Yes (HTN- ) Hx Hypercholesterolemia: No Hx Pacemaker: No HX Cerebrovascular Accident: No Hx Seizures: No Hx Dementia: No Hx Diabetes: No Hx Gastrointestinal Disorders: No Hx Liver Disease: No Hx Genitourinary Disorders: Yes (BPH) Hx Sexually Transmitted Disorders: No Hx Renal Disease (ESRD): No Hx Thyroid Disease: No Hx Human Immunodeficiency Virus (HIV): No Hx Hepatitis C: No Hx Depression: Yes Hx Suicide Attempt: No Hx Bipolar Disorder: No Hx Schizophrenia: No Other Medical History: PTSD, ANXIETY - Patient Surgical History Past Surgical History: Yes Hx Neurologic Surgery: No Hx Cataract Extraction: No Hx Cardiac Surgery: No Hx Lung Surgery: No Hx Breast Surgery: No Hx Breast Biopsy: No Hx Abdominal Surgery: Yes (R inguinal hernia repair in 2008) Hx Appendectomy: No Hx Cholecystectomy: No Hx Genitourinary Surgery: No Hx Section: No Hx Orthopedic Surgery: No Anesthesia Reaction: No - PPD History Previous Implant?: Yes Documented Results: Negative w/proof Implanted On Prior R Admission?: Yes Date: 10/03/11 Results: 0MM PPD to be Administered?: Yes - Smoking Cessation Smoking history: Current every day smoker Have you smoked in the past 12 months: Yes Aproximately how many cigarettes per day: 20 Hx Chewing Tobacco Use: No Initiated information on smoking cessation: Yes 'Breaking Loose' booklet given: 02/13/19 - Substance & Tx. History Hx Alcohol Use: No Hx Substance Use: Yes Substance Use Type: Cocaine, Heroin Hx Substance Use Treatment: Yes ([facility]) - Substances abused Heroin Substance route: Injection Frequency: Daily Amount used: 1 bundle Age of first use: 15 Date of last use: 02/13/19 (5) Cocaine Substance route: Injection Frequency: Daily Amount used: 40 dollars Age of first use: 15 Date of last use: 02/12/19 Crack Substance route: Smoking Frequency: Daily Amount used: 1 gram Age of first use: 15 Date of last use: 02/12/19 Family Disease History - Family Disease History Family History: Denies Admission Physical Exam [facility] - Vital Signs Vital Signs: Vital Signs - 24 hr 02/13/19 17:55 Temperature 99.0 F Pulse Rate 57 L Respiratory 16 Rate Blood Pressure 160/91 - Physical General Appearance: Yes: Moderate Distress, Tremorous (FELT), Irritable, Anxious HEENTM: Yes: EOMI, Normocephalic, Normal Voice, ERICK, Pharynx Normal, Other ( TRACK POTTER TO NECK) Respiratory: Yes: Chest Non-Tender, Lungs Clear, No Respiratory Distress, No Accessory Muscle Use Neck: Yes: No masses,lesions,Nodules, Supple Breast: Yes: Breast Exam Deferred Cardiology: Yes: Regular Rhythm, Regular Rate, S1, S2 Abdominal: Yes: Normal Bowel Sounds, Non Tender, Soft Genitourinary: Yes: Hesitency (BPH) Back: Yes: Normal Inspection Musculoskeletal: Yes: Gait Steady Extremities: Yes: Normal Capillary Refill, Tremors, Pedal Edema (LLE 1= PITTING) Neurological: Yes: Fully Oriented, Alert, Motor Strength 5/5, Normal Mood/Affect Integumentary: Yes: Dry, Warm, Pitting Edema (LLE), Track [place], Other ( SCATTERED AREAS OF ABRASION AND SCABBING) Lymphatic: Yes: Within Normal Limits - Diagnostic (1) Opioid dependence with withdrawal Current Visit: Yes Status: Acute (2) Cannabis abuse, uncomplicated Current Visit: Yes Status: Acute (3) Cocaine dependence, uncomplicated Current Visit: Yes Status: Acute (4) IVDU (intravenous drug user) Current Visit: Yes Status: Acute (5) Non compliance w medication regimen Current Visit: Yes Status: Acute (6) Homeless Current Visit: Yes Status: Acute (7) BPH (benign prostatic hyperplasia) Current Visit: No Status: Acute (8) Hypertension Current Visit: No Status: Acute (9) Nicotine dependence Current Visit: No Status: Chronic Qualifiers: Nicotine product type: cigarettes Cleared for Admission [facility] - Detox or Rehab [facility] Level of Care: Medically Managed Detox Regimen/Protocol: Methadone Claeared for Rehab Admission: No Breathalyzer - Breathalyzer Breathalyzer: 0 Urine Drug Screen - Test Device Lot number: [id number] Expiration date: 08/21/20 - Control Is test valid?: Yes - Results Drug screen NEGATIVE: No Urine drug screen results: THC-Marijuana, BILL-Cocaine, FEN-Fentanyl, MOP-Opiates , OXY-Oxycodone, MTD-Methadone, BZO-Benzodiazepines, BUP-Suboxone Inpatient Rehab Admission - Rehab Decision to Admit Inpatient rehab admission?: No
[2019-02-13] MEDS ORDERED: MAG HYDROX/AL HYDROX/SIMETH 30 ML UNIT-DOSE CUP PO PRN (19:22)
[2019-02-13] MEDS ORDERED: BISMUTH SUBSALICYLATE 524 MG/30 ML UD PO PRN (19:22)
[2019-02-13] MEDS ORDERED: METHADONE HCL 10 MG TABLET (FOR DETOX USE ONLY) PO ONE (19:22)
[2019-02-13] MEDS ORDERED: MAGNESIUM HYDROX 2400MG/30ML ORAL SUSPENSION 30 ML CUP PO PRN (19:22)
[2019-02-13] MEDS ORDERED: guaiFENesin 200 MG/10 ML 10 ML UNIT-DOSE CUPS PO PRN (19:22)
[2019-02-13] MEDS ORDERED: P-EPHED 60MG/TRIPROLIDI 2.5MG TABLET PO PRN (19:22)
[2019-02-13] MEDS ORDERED: NALOXONE HCL 0.4 MG/ML VIAL IM PRN (19:22)
[2019-02-13] MEDS ORDERED: ACETAMINOPHEN 325 MG TABLET (FP) PO PRN (19:22)
[2019-02-13] MEDS ORDERED: cloNIDine HCL 0.1 MG TABLET PO PRN (19:22)
[2019-02-13] MEDS ORDERED: MENTHOL/PHENOL 1 EACH UD MM PRN (19:22)
[2019-02-13] MEDS ORDERED: DICYCLOMINE HCL 10 MG CAPSULE PO PRN (19:22)
[2019-02-13] MEDS ORDERED: ALBUTEROL SO4 8 GM HFA INHALER IH PRN (19:22)
[2019-02-13] MEDS ORDERED: ONDANSETRON *ODT* 4 MG TABLET SL PRN (19:22)
[2019-02-13] MEDS ORDERED: MAGNESIUM CITRATE 300 ML BOTTLE PO PRN (19:22)
[2019-02-13] MEDS: hydrOXYzine HCL 25 MG TABLET (FP) PO PRN (22:32)
[2019-02-13] MEDS: THIAMINE HCL 100 MG TABLET (FP) PO SCH (22:32)
[2019-02-14] MEDS ORDERED: METHADONE HCL 5 MG TABLET (FOR DETOX USE ONLY) ONE (09:43)
[2019-02-14] MEDS ORDERED: METHADONE HCL 10 MG TABLET (FOR DETOX USE ONLY) ONE (09:43)
[2019-02-14] MEDS ORDERED: METHADONE (DETOX) 20 MG, METHADONE (DETOX) 5 MG PO ONE (10:00)
--- NOTE | 2019-02-14 10:49 | CONSULT ---
[facility] Psychiatric Consult - Data Date of interview: 02/14/19 Admission source: [facility] Identifying data: Patient is approached by this medical writer, at bedside, for psychiatric evaluation. Mr Adrian is uncooperative (simply ignores the presence of MD). Nursing staff is made aware.
[2019-02-14 10:55] LABS: HEMATOCRIT 36.9 % (35.4-49); HEMOGLOBIN 12.3 GM/dL (11.7-16.9); MCH 29.5 pg (25.7-33.7); MCHC 33.4 g/dl (32.0-35.9); MEAN CELL VOLUME 88.4 fl (80-96); MEAN PLT VOLUME 9.4 fl (7.5-11.1); RBC 4.17 M/mm3 (4.00-5.60); RDW 14.4 % (11.9-15.9); WHITE BLOOD COUNT 6.7 K/mm3 (4.0-10.0)
[2019-02-14] MEDS: amLODIPine BESYLATE 10 MG TABLET (FP) PO SCH (10:55)
[2019-02-14] MEDS: PRENATAL VITAMINS W/ FOLIC ACID TABLET (FP) PO SCH (10:55)
[2019-02-14] MEDS: NICOTINE 21 MG/24 HOURS TOPICAL PATCH TD SCH (10:56)
[2019-02-14] MEDS: TAMSULOSIN HCL 0.4 MG CAP PO SCH (10:56)
[2019-02-14 11:06] LABS: ALBUMIN 2.9 g/dl (3.4-5.0); BILIRUBIN,TOTAL 0.5 mg/dL (0.2-1); BLOOD UREA NITROGEN 15.4 mg/dL (7-18); CALCIUM 8.4 mg/dL (8.5-10.1); CREATININE 0.8 mg/dL (0.55-1.3); POTASSIUM 3.8 mmol/L (3.5-5.1); TOT PROT 6.4 g/dl (6.4-8.2)
[2019-02-14 11:21] LABS: PLATELET COUNT 192 K/MM3 (134-434)
--- NOTE | 2019-02-14 15:50 | PN ---
[facility]HS COWS - Scale Resting Pulse: 0= CT 80 or Below Sweatin= Chills/Flushing Restless Observation: 1= Difficult to Sit Still Pupil Size: 0= Normal to Room Light Bone or Joint Aches: 0= None Runny Nose/ Eye Tearin= Nasal Congestion GI Upset > 30mins: 0= None Tremor Observation of Outstretched Hands: 2= Slight Tremor Visible Yawning Observation: 1= 1-2x During Session Anxiety or Irritability: 2=Irritable/Anxious Goose Flesh Skin: 3=Piloerection COWS Score: 11 S Progress Note (SOAP) Subjective: Anxious, Fatigue, Nasal Congestion, Tremors. Objective: PATIENT A & O X 3, OBSERVED AMBULATING ON UNIT UNASSISTED. IN NO ACUTE DISTRESS. 02/14/19 15:49 Vital Signs Temperature 99.2 F 02/14/19 13:13 Pulse Rate 65 02/14/19 13:13 Respiratory Rate 18 02/14/19 13:13 Blood Pressure 143/87 02/14/19 13:13 O2 Sat by Pulse Oximetry (%) Laboratory Tests 02/14/19 02/14/19 02/14/19 08:00 08:00 08:00 WBC 6.7 RBC 4.17 Hgb 12.3 Hct 36.9 MCV 88.4 MCH 29.5 MCHC 33.4 RDW 14.4 Plt Count 192 MPV 9.4 Sodium 142 Potassium 3.8 Chloride 107 Carbon Dioxide 29 Anion Gap 6 L BUN 15.4 Creatinine 0.8 Est GFR (CKD-EPI)AfAm 121.57 Est GFR (CKD-EPI)NonAf 104.89 Random Glucose 81 Calcium 8.4 L Total Bilirubin 0.5 AST 107 H ALT 132 H Alkaline Phosphatase 114 Total Protein 6.4 Albumin 2.9 L RPR Titer Nonreactive LABS NOTED. RESULTS OF DETOX ADMISSION QFT /TB TEST PENDING. Assessment: 02/14/19 15:49 WITHDRAWAL SYMPTOMS. ELEVATED AST LEVEL. [id number] ALT LEVEL. 02/14/19 15:49 Plan: CONTINUE DETOX.
[2019-02-14] MEDS: hydrOXYzine HCL 25 MG TABLET (FP) PO PRN (22:17)
[2019-02-14] MEDS: MELATONIN 5 MG TABLETS PO PRN (22:17)
[2019-02-14] MEDS: THIAMINE HCL 100 MG TABLET (FP) PO SCH (22:17)
[2019-02-15] MEDS ORDERED: METHADONE HCL 10 MG TABLET (FOR DETOX USE ONLY) PO ONE (10:00)
[2019-02-15] MEDS: TAMSULOSIN HCL 0.4 MG CAP PO SCH (10:34)
[2019-02-15] MEDS: NICOTINE 21 MG/24 HOURS TOPICAL PATCH TD SCH (10:35)
[2019-02-15] MEDS: amLODIPine BESYLATE 10 MG TABLET (FP) PO SCH (10:35)
[2019-02-15] MEDS: METHOCARBAMOL 500 MG TABLET PO PRN (10:35)
[2019-02-15] MEDS: PRENATAL VITAMINS W/ FOLIC ACID TABLET (FP) PO SCH (10:35)
--- NOTE | 2019-02-15 14:16 | PN ---
BHS COWS - Scale Resting Pulse: 0= [place] 80 or Below Sweatin= Chills/Flushing Restless Observation: 0= Sits Still Pupil Size: 1= Pupils >than Normal Bone or Joint Aches: 1= Mild Discomfort Runny Nose/ Eye Tearin= Nasal Congestion GI Upset > 30mins: 0= None Tremor Observation of Outstretched Hands: 2= Slight Tremor Visible Yawning Observation: 0= None Anxiety or Irritability: 1=Feels Anxious/Irritable Goose Flesh Skin: 3=Piloerection COWS Score: 10 BHS Progress Note (SOAP) Subjective: 48 years old male admitted on 02/13/19 for acute opiate withdrawal sx management doing well with methadone detox regimen ate 90% breakfast feeling ok tolerate food and fluid well feeling tired resting on bed Objective: 02/15/19 14:15 Vital Signs Temperature 96 F L 02/15/19 13:14 Pulse Rate 70 02/15/19 13:14 Respiratory Rate 20 02/15/19 13:14 Blood Pressure 125/71 02/15/19 13:14 O2 Sat by Pulse Oximetry (%) Laboratory Last Values WBC 6.7 K/mm3 (4.0-10.0) 02/14/19 08:00 RBC 4.17 M/mm3 (4.00-5.60) 02/14/19 08:00 Hgb 12.3 GM/dL (11.7-16.9) 02/14/19 08:00 Hct 36.9 % (35.4-49) 02/14/19 08:00 MCV 88.4 fl (80-96) 02/14/19 08:00 MCH 29.5 pg (25.7-33.7) 02/14/19 08:00 MCHC 33.4 g/dl (32.0-35.9) 02/14/19 08:00 RDW 14.4 % (11.9-15.9) 02/14/19 08:00 Plt Count 192 K/MM3 (134-434) 02/14/19 08:00 MPV 9.4 fl (7.5-11.1) 02/14/19 08:00 Sodium 142 mmol/L (136-145) 02/14/19 08:00 Potassium 3.8 mmol/L (3.5-5.1) 02/14/19 08:00 Chloride 107 mmol/L (98-107) 02/14/19 08:00 Carbon Dioxide 29 mmol/L (21-32) 02/14/19 08:00 Anion Gap 6 MMOL/L (8-16) L 02/14/19 08:00 BUN 15.4 mg/dL (7-18) 02/14/19 08:00 Creatinine 0.8 mg/dL (0.55-1.3) 02/14/19 08:00 Est GFR (CKD-EPI)AfAm 121.57 02/14/19 08:00 Est GFR (CKD-EPI)NonAf 104.89 02/14/19 08:00 Random Glucose 81 mg/dL (74-106) 02/14/19 08:00 Calcium 8.4 mg/dL (8.5-10.1) L 02/14/19 08:00 Total Bilirubin 0.5 mg/dL (0.2-1) 02/14/19 08:00 AST 107 U/L (15-37) H 02/14/19 08:00 ALT 132 U/L (13-61) H 02/14/19 08:00 Alkaline Phosphatase 114 U/L (45-117) 02/14/19 08:00 Total Protein 6.4 g/dl (6.4-8.2) 02/14/19 08:00 Albumin 2.9 g/dl (3.4-5.0) L 02/14/19 08:00 RPR Titer Nonreactive (NONREACTIVE) 02/14/19 08:00 lab noted Assessment: 02/15/19 14:16 opiate withdrawal sx Plan: continue methadone detox
[2019-02-15] MEDS: THIAMINE HCL 100 MG TABLET (FP) PO SCH (22:52)
[2019-02-16] MEDS ORDERED: METHADONE HCL 10 MG TABLET (FOR DETOX USE ONLY) ONE (09:08)
[2019-02-16] MEDS ORDERED: METHADONE HCL 5 MG TABLET (FOR DETOX USE ONLY) ONE (09:08)
[2019-02-16] MEDS: PRENATAL VITAMINS W/ FOLIC ACID TABLET (FP) PO SCH (09:42)
[2019-02-16] MEDS: amLODIPine BESYLATE 10 MG TABLET (FP) PO SCH (09:42)
[2019-02-16] MEDS: TAMSULOSIN HCL 0.4 MG CAP PO SCH (09:42)
[2019-02-16] MEDS: NICOTINE 21 MG/24 HOURS TOPICAL PATCH TD SCH (09:43)
[2019-02-16] MEDS ORDERED: METHADONE (DETOX) 10 MG, METHADONE (DETOX) 5 MG PO ONE (10:00)
[2019-02-16] MEDS: ACETAMINOPHEN 325 MG TABLET (FP) PO PRN (11:23)
--- NOTE | 2019-02-16 11:56 | PN ---
BHS COWS - Scale Resting Pulse: 0= [place] 80 or Below Sweatin= Chills/Flushing Restless Observation: 0= Sits Still Pupil Size: 1= Pupils >than Normal Bone or Joint Aches: 1= Mild Discomfort Runny Nose/ Eye Tearin= Nasal Congestion GI Upset > 30mins: 1= Stomach Cramp Tremor Observation of Outstretched Hands: 1= Tremor [place], Not Seen Yawning Observation: 1= 1-2x During Session Anxiety or Irritability: 1=Feels Anxious/Irritable Goose Flesh Skin: 0=Smooth Skin COWS Score: 8 S Progress Note (SOAP) Subjective: doing well with methadone detox regimen discuss medication assisted treatment program mild body aches less tremor sleep better at night Objective: 02/16/19 11:54 Vital Signs Temperature 97.1 F L 02/16/19 09:28 Pulse Rate 69 02/16/19 09:28 Respiratory Rate 15 02/16/19 09:28 Blood Pressure 130/82 02/16/19 09:28 O2 Sat by Pulse Oximetry (%) Laboratory Last Values WBC 6.7 K/mm3 (4.0-10.0) 02/14/19 08:00 RBC 4.17 M/mm3 (4.00-5.60) 02/14/19 08:00 Hgb 12.3 GM/dL (11.7-16.9) 02/14/19 08:00 Hct 36.9 % (35.4-49) 02/14/19 08:00 MCV 88.4 fl (80-96) 02/14/19 08:00 MCH 29.5 pg (25.7-33.7) 02/14/19 08:00 MCHC 33.4 g/dl (32.0-35.9) 02/14/19 08:00 RDW 14.4 % (11.9-15.9) 02/14/19 08:00 Plt Count 192 K/MM3 (134-434) 02/14/19 08:00 MPV 9.4 fl (7.5-11.1) 02/14/19 08:00 Sodium 142 mmol/L (136-145) 02/14/19 08:00 Potassium 3.8 mmol/L (3.5-5.1) 02/14/19 08:00 Chloride 107 mmol/L (98-107) 02/14/19 08:00 Carbon Dioxide 29 mmol/L (21-32) 02/14/19 08:00 Anion Gap 6 MMOL/L (8-16) L 02/14/19 08:00 BUN 15.4 mg/dL (7-18) 02/14/19 08:00 Creatinine 0.8 mg/dL (0.55-1.3) 02/14/19 08:00 Est GFR (CKD-EPI)AfAm 121.57 02/14/19 08:00 Est GFR (CKD-EPI)NonAf 104.89 02/14/19 08:00 Random Glucose 81 mg/dL (74-106) 02/14/19 08:00 Calcium 8.4 mg/dL (8.5-10.1) L 02/14/19 08:00 Total Bilirubin 0.5 mg/dL (0.2-1) 02/14/19 08:00 AST 107 U/L (15-37) H 02/14/19 08:00 ALT 132 U/L (13-61) H 02/14/19 08:00 Alkaline Phosphatase 114 U/L (45-117) 02/14/19 08:00 Total Protein 6.4 g/dl (6.4-8.2) 02/14/19 08:00 Albumin 2.9 g/dl (3.4-5.0) L 02/14/19 08:00 RPR Titer Nonreactive (NONREACTIVE) 02/14/19 08:00 lab noted encourage the patient bringing in lab report and medication list to [facility] for ast elevation follow up discuss opiate related ast elevation Assessment: opiate withdrawal sx alert oriented x 3 ate 90% breakfast tolerate food well ambulating on hallway Plan: continue methadone detox regimen
--- NOTE | 2019-02-16 13:02 | EKG ---
Test Reason : Blood Pressure : / mmHG Vent. Rate : 045 BPM Atrial Rate : 045 BPM P-R Int : 124 ms QRS Dur : 084 ms QT Int : 442 ms P-R-T Axes : -27 005 024 degrees QTc Int : 382 ms SINUS BRADYCARDIA OTHERWISE NORMAL ECG NO PREVIOUS ECGS AVAILABLE Confirmed by ZACKARY NARAYAN MD ([id number]) on 02/16/2019 1:02:11 PM Referred By: EREN Confirmed By:ZACKARY NARAYAN MD
[2019-02-16] MEDS: IBUPROFEN 400 MG TABLET (FP) PO PRN (18:20)
[2019-02-16] MEDS: NICOTINE POLACRILEX 2 MG GUM BUC PRN (18:22)
[2019-02-16] MEDS: THIAMINE HCL 100 MG TABLET (FP) PO SCH (22:05)
[2019-02-16] MEDS: METHOCARBAMOL 500 MG TABLET PO PRN (22:05)
[2019-02-16] MEDS: hydrOXYzine HCL 25 MG TABLET (FP) PO PRN (22:06)
[2019-02-16] MEDS: MELATONIN 5 MG TABLETS PO PRN (22:06)
[2019-02-17] MEDS: TAMSULOSIN HCL 0.4 MG CAP PO SCH (09:52)
[2019-02-17] MEDS: METHOCARBAMOL 500 MG TABLET PO PRN ×2 (09:52→22:17)
[2019-02-17] MEDS: NICOTINE POLACRILEX 2 MG GUM BUC PRN ×2 (09:52→16:56)
[2019-02-17] MEDS: ACETAMINOPHEN 325 MG TABLET (FP) PO PRN ×2 (09:52→18:00)
[2019-02-17] MEDS ORDERED: METHADONE HCL 10 MG TABLET (FOR DETOX USE ONLY) PO ONE (10:00)
[2019-02-17] MEDS: NICOTINE 21 MG/24 HOURS TOPICAL PATCH TD SCH (10:05)
[2019-02-17] MEDS: amLODIPine BESYLATE 10 MG TABLET (FP) PO SCH (10:06)
[2019-02-17] MEDS: PRENATAL VITAMINS W/ FOLIC ACID TABLET (FP) PO SCH (10:06)
[2019-02-17] MEDS: IBUPROFEN 400 MG TABLET (FP) PO PRN (13:16)
--- NOTE | 2019-02-17 13:35 | PN ---
BHS COWS - Scale Resting Pulse: 0= [place] 80 or Below Sweatin= Chills/Flushing Restless Observation: 0= Sits Still Pupil Size: 0= Normal to Room Light Bone or Joint Aches: 1= Mild Discomfort Runny Nose/ Eye Tearin= None GI Upset > 30mins: 0= None Tremor Observation of Outstretched Hands: 1= Tremor [place], Not Seen Yawning Observation: 1= 1-2x During Session Anxiety or Irritability: 1=Feels Anxious/Irritable Goose Flesh Skin: 0=Smooth Skin COWS Score: 5 BHS Progress Note (SOAP) Subjective: 48 years old male admitted on 02/13/19 for opiate withdrawal sx management doing well with methadone detox regimen sleep better at night better concentration discuss medication assisted treatment program Vital Signs Temperature 98.0 F 02/17/19 13:17 Pulse Rate 79 02/17/19 13:17 Respiratory Rate 18 02/17/19 13:17 Blood Pressure 137/83 02/17/19 13:17 O2 Sat by Pulse Oximetry (%) Laboratory Last Values WBC 6.7 K/mm3 (4.0-10.0) 02/14/19 08:00 RBC 4.17 M/mm3 (4.00-5.60) 02/14/19 08:00 Hgb 12.3 GM/dL (11.7-16.9) 02/14/19 08:00 Hct 36.9 % (35.4-49) 02/14/19 08:00 MCV 88.4 fl (80-96) 02/14/19 08:00 MCH 29.5 pg (25.7-33.7) 02/14/19 08:00 MCHC 33.4 g/dl (32.0-35.9) 02/14/19 08:00 RDW 14.4 % (11.9-15.9) 02/14/19 08:00 Plt Count 192 K/MM3 (134-434) 02/14/19 08:00 MPV 9.4 fl (7.5-11.1) 02/14/19 08:00 Sodium 142 mmol/L (136-145) 02/14/19 08:00 Potassium 3.8 mmol/L (3.5-5.1) 02/14/19 08:00 Chloride 107 mmol/L (98-107) 02/14/19 08:00 Carbon Dioxide 29 mmol/L (21-32) 02/14/19 08:00 Anion Gap 6 MMOL/L (8-16) L 02/14/19 08:00 BUN 15.4 mg/dL (7-18) 02/14/19 08:00 Creatinine 0.8 mg/dL (0.55-1.3) 02/14/19 08:00 Est GFR (CKD-EPI)AfAm 121.57 02/14/19 08:00 Est GFR (CKD-EPI)NonAf 104.89 02/14/19 08:00 Random Glucose 81 mg/dL (74-106) 02/14/19 08:00 Calcium 8.4 mg/dL (8.5-10.1) L 02/14/19 08:00 Total Bilirubin 0.5 mg/dL (0.2-1) 02/14/19 08:00 AST 107 U/L (15-37) H 02/14/19 08:00 ALT 132 U/L (13-61) H 02/14/19 08:00 Alkaline Phosphatase 114 U/L (45-117) 02/14/19 08:00 Total Protein 6.4 g/dl (6.4-8.2) 02/14/19 08:00 Albumin 2.9 g/dl (3.4-5.0) L 02/14/19 08:00 RPR Titer Nonreactive (NONREACTIVE) 02/14/19 08:00 lab noted patient agrees to bringing in lab result to primary care provider for ast elevation follow up history of hypertension and bph Objective: 02/17/19 13:33 Vital Signs opiate withdrawal sx alert oriented x 3 speech clearly hypertension managed by amlodipine bph controlled by flomax 02/17/19 13:35 Vital Signs Temperature 98.0 F 02/17/19 13:17 Pulse Rate 79 02/17/19 13:17 Respiratory Rate 18 02/17/19 13:17 Blood Pressure 137/83 02/17/19 13:17 O2 Sat by Pulse Oximetry (%) Laboratory Last Values WBC 6.7 K/mm3 (4.0-10.0) 02/14/19 08:00 RBC 4.17 M/mm3 (4.00-5.60) 02/14/19 08:00 Hgb 12.3 GM/dL (11.7-16.9) 02/14/19 08:00 Hct 36.9 % (35.4-49) 02/14/19 08:00 MCV 88.4 fl (80-96) 02/14/19 08:00 MCH 29.5 pg (25.7-33.7) 02/14/19 08:00 MCHC 33.4 g/dl (32.0-35.9) 02/14/19 08:00 RDW 14.4 % (11.9-15.9) 02/14/19 08:00 Plt Count 192 K/MM3 (134-434) 02/14/19 08:00 MPV 9.4 fl (7.5-11.1) 02/14/19 08:00 Sodium 142 mmol/L (136-145) 02/14/19 08:00 Potassium 3.8 mmol/L (3.5-5.1) 02/14/19 08:00 Chloride 107 mmol/L (98-107) 02/14/19 08:00 Carbon Dioxide 29 mmol/L (21-32) 02/14/19 08:00 Anion Gap 6 MMOL/L (8-16) L 02/14/19 08:00 BUN 15.4 mg/dL (7-18) 02/14/19 08:00 Creatinine 0.8 mg/dL (0.55-1.3) 02/14/19 08:00 Est GFR (CKD-EPI)AfAm 121.57 02/14/19 08:00 Est GFR (CKD-EPI)NonAf 104.89 02/14/19 08:00 Random Glucose 81 mg/dL (74-106) 02/14/19 08:00 Calcium 8.4 mg/dL (8.5-10.1) L 02/14/19 08:00 Total Bilirubin 0.5 mg/dL (0.2-1) 02/14/19 08:00 AST 107 U/L (15-37) H 02/14/19 08:00 ALT 132 U/L (13-61) H 02/14/19 08:00 Alkaline Phosphatase 114 U/L (45-117) 02/14/19 08:00 Total Protein 6.4 g/dl (6.4-8.2) 02/14/19 08:00 Albumin 2.9 g/dl (3.4-5.0) L 02/14/19 08:00 RPR Titer Nonreactive (NONREACTIVE) 02/14/19 08:00 lab noted Assessment: 02/17/19 13:35 opiate withdrawal sx 02/17/19 13:35 alert oriented x 3 denies chest pain no headaches no trouble urination Plan: continue methadone detox
[2019-02-17] MEDS: MELATONIN 5 MG TABLETS PO PRN (22:16)
[2019-02-17] MEDS: THIAMINE HCL 100 MG TABLET (FP) PO SCH (22:16)
[2019-02-18] MEDS ORDERED: METHADONE HCL 5 MG TABLET (FOR DETOX USE ONLY) PO ONE (06:00)
[2019-02-18 09:17] VITALS: BP 125/77; PULSE 87; TEMP 98.6
[2019-02-18] MEDS: amLODIPine BESYLATE 10 MG TABLET (FP) PO SCH (10:24)
[2019-02-18] MEDS: TAMSULOSIN HCL 0.4 MG CAP PO SCH (10:24)
[2019-02-18] MEDS: NICOTINE 21 MG/24 HOURS TOPICAL PATCH TD SCH (10:24)
[2019-02-18] MEDS: PRENATAL VITAMINS W/ FOLIC ACID TABLET (FP) PO SCH (10:24)
[2019-02-18] MEDS: METHOCARBAMOL 500 MG TABLET PO PRN (10:25)
[2019-02-18] MEDS: IBUPROFEN 400 MG TABLET (FP) PO PRN (10:25)
--- NOTE | 2019-02-18 14:09 | DS ---
[facility] Detox Discharge Summary Admission Date: 02/13/19 Discharge Date: 02/18/19 - History Present History: Opioid Dependence Additional Comments: 48 years old male 3rd patient [facility] admission since 2011 was admitted on 02/13/19 for opiate withdrawa sx management did well with methadone detox regimen no complication through out the detox stay seen by psychiatrist but refused engage conversation with the psychiatrist history of hypertension bp range from 120/70-140/90 denies chest pain no shortness of breath no wheezing bph denies urinary issue at this time patient is alert orietned x 3 steady gait skin warm and dry asthma controlled through ventolin prn Pertinent Past History: encourage the patient seeking medication assisted treatment program - Physical Exam Results Vital Signs: Vital Signs Temperature 98.6 F 02/18/19 09:16 Pulse Rate 87 02/18/19 09:16 Respiratory Rate 16 02/18/19 09:16 Blood Pressure 125/77 02/18/19 09:16 O2 Sat by Pulse Oximetry (%) Pertinent Admission Physical Exam Findings: opiate withdrawal sx Laboratory Last Values WBC 6.7 K/mm3 (4.0-10.0) 02/14/19 08:00 RBC 4.17 M/mm3 (4.00-5.60) 02/14/19 08:00 Hgb 12.3 GM/dL (11.7-16.9) 02/14/19 08:00 Hct 36.9 % (35.4-49) 02/14/19 08:00 MCV 88.4 fl (80-96) 02/14/19 08:00 MCH 29.5 pg (25.7-33.7) 02/14/19 08:00 MCHC 33.4 g/dl (32.0-35.9) 02/14/19 08:00 RDW 14.4 % (11.9-15.9) 02/14/19 08:00 Plt Count 192 K/MM3 (134-434) 02/14/19 08:00 MPV 9.4 fl (7.5-11.1) 02/14/19 08:00 Sodium 142 mmol/L (136-145) 02/14/19 08:00 Potassium 3.8 mmol/L (3.5-5.1) 02/14/19 08:00 Chloride 107 mmol/L (98-107) 02/14/19 08:00 Carbon Dioxide 29 mmol/L (21-32) 02/14/19 08:00 Anion Gap 6 MMOL/L (8-16) L 02/14/19 08:00 BUN 15.4 mg/dL (7-18) 02/14/19 08:00 Creatinine 0.8 mg/dL (0.55-1.3) 02/14/19 08:00 Est GFR (CKD-EPI)AfAm 121.57 02/14/19 08:00 Est GFR (CKD-EPI)NonAf 104.89 02/14/19 08:00 Random Glucose 81 mg/dL (74-106) 02/14/19 08:00 Calcium 8.4 mg/dL (8.5-10.1) L 02/14/19 08:00 Total Bilirubin 0.5 mg/dL (0.2-1) 02/14/19 08:00 AST 107 U/L (15-37) H 02/14/19 08:00 ALT 132 U/L (13-61) H 02/14/19 08:00 Alkaline Phosphatase 114 U/L (45-117) 02/14/19 08:00 Total Protein 6.4 g/dl (6.4-8.2) 02/14/19 08:00 Albumin 2.9 g/dl (3.4-5.0) L 02/14/19 08:00 RPR Titer Nonreactive (NONREACTIVE) 02/14/19 08:00 lab noted - Treatment Hospital Course: Detox Protocol Followed, Detoxed Safely, Responded well, Discharged Condition Good, Rehab Referral Accepted Patient has Accepted a Rehab Referral to: community support approach - Medication Discharge Medications: Ambulatory Orders Folic Acid 1 mg PO DAILY 10/01/18 Quetiapine Fumarate [Seroquel] 100 mg PO HS 10/01/18 Thiamine HCl [Vitamin B-1] 100 mg PO DAILY 10/01/18 Albuterol Sulfate Inhaler - [Ventolin HFA Inhaler -] 2 inh PO Q4H PRN #1 inhaler 02/17/19 Amlodipine Besylate [Norvasc -] 10 mg PO DAILY #30 tablet 02/17/19 Tamsulosin HCl [Flomax] 0.4 mg PO DAILY #30 capsule 02/17/19 - Diagnosis (1) Opioid dependence with withdrawal Current Visit: Yes Status: Acute (2) BPH (benign prostatic hyperplasia) Current Visit: Yes Status: Chronic Qualifiers: Lower urinary tract symptom presence: symptoms absent Qualified Code(s): N40.0 - Benign prostatic hyperplasia without lower urinary tract symptoms (3) Hypertension Current Visit: Yes Status: Chronic Qualifiers: Hypertension type: essential hypertension Qualified Code(s): I10 - Essential (primary) hypertension (4) Nicotine dependence Current Visit: No Status: Acute Qualifiers: Nicotine product type: cigarettes Substance use status: in withdrawal Qualified Code(s): F17.213 - Nicotine dependence, cigarettes, with withdrawal - AMA Did Patient Leave Against Medical Advice: No
== END 2019-02-18 12:25 | disposition home or self-care (01) | DRG 773 ==
LOC: YASAS 16:45 → Y3N 20:02
PROVIDERS: ADMIT Surgery; ATTEND Surgery
PROC: HZ2ZZZZ Detoxification Services for Substance Abuse Treatment (ICD-10-PCS; principal; 2019-02-13)
DX: F11.23 Opioid dependence with withdrawal (principal); F14.20 Cocaine dependence, uncomplicated; F12.10 Cannabis abuse, uncomplicated; F17.213 Nicotine dependence, cigarettes, with withdrawal; I10 Essential (primary) hypertension; N40.0 Benign prostatic hyperplasia without lower urinary tract symptoms; R74.0 Nonspecific elevation of levels of transaminase and lactic acid dehydrogenase [LDH]; Z91.14 Patient's other noncompliance with medication regimen; Z59.0 Homelessness
CPT/HCPCS: 36415; 80053; 85027; 86480; 86593; 93005; 93010; J0735

== ENCOUNTER 2019-03-16 17:27 | Inpatient (IN) | payer BC ==
[2019-03-16 22:15] VITALS: BMI 24.3
--- NOTE | 2019-03-16 23:37 | HP ---
COWS - Scale Resting Pulse: 0= [place] 80 or Below Sweatin= Chills/Flushing Restless Observation: 1= Difficult to Sit Still Pupil Size: 0= Normal to Room Light Bone or Joint Aches: 1= Mild Discomfort Runny Nose/ Eye Tearin= Nasal Congestion GI Upset > 30mins: 0= None Tremor Observation: 1= Tremor [place], Not Seen Yawning Observation: 2= >3x During Session Anxiety or Irritability: 2=Irritable/Anxious Goose Flesh Skin: 0=Smooth Skin COWS Score: 9 CIWA Score Nausea/Vomitin-No Nausea/No Vomiting Muscle Tremors: None Anxiety: 0-No Anxiety, at Ease Agitation: 0-Normal Activity - Admission Criteria OASAS Guidelines: Admission for Medically Managed Detox: Requires at least one of the followin. CIWA greater than 12 2. Seizures within the past 24 hours 3. Delirium tremens within the past 24 hours 4. Hallucinations within the past 24 hours 5. Acute intervention needed for co occurring medical disorder 6. Acute intervention needed for co occurring psychiatric disorder 7. Severe withdrawal that cannot be handled at a lower level of care (continued vomiting, continued diarrhea, abnormal vital signs) requiring intravenous medication and/or fluids 8. Admission [facility] Allergies/Adverse Reactions: Allergies Allergy/AdvReac Type Severity Reaction Status Date / Time No Known Allergies Allergy Verified 03/16/19 21:51 History of Present Illness: Search Terms: enrike campbell, 1970 Search Date: 11/28/2018 09:50:03 AM The Drug Utilization Report below displays all of the controlled substance prescriptions, if any, that your patient has filled in the last twelve months. The information displayed on this report is compiled from pharmacy submissions to the Department, and accurately reflects the information as submitted by the pharmacies. This report was requested by: Manasa Beckford | Reference #: [id number] Others' Prescriptions Patient Name: Enrike Campbell Date: 1970 Address: [place] [address] Sex: Male Rx Written Rx Dispensed Drug Quantity Days Supply Prescriber Name 11/06/2018 11/06/2018 buprenorphine-naloxone 8-2 mg sl film 60 30 Angela Hedrick NP 11/04/2018 11/04/2018 buprenorphine-naloxone 12-3 mg sl film 14 14 Luís Soliz) 10/30/2018 10/30/2018 buprenorphine-naloxone 8-2 mg sl film 14 14 Angela Hedrick [employer] 10/27/2018 10/27/2018 diazepam 10 mg tablet 5 5 Luís Soliz () 10/27/2018 10/27/2018 buprenorphine-naloxone 4-1 mg sl film 12 6 Luís Soliz () Patient Name: Enrike Campbell Date: 1970 Address: [address] [place] [address] Sex: Male Rx Written Rx Dispensed Drug Quantity Days Supply Prescriber Name 06/21/2018 07/05/2018 dextroamp-amphetamin 30 mg tab 60 30 ValbrunLew MD 06/21/2018 07/03/2018 zolpidem tartrate 10 mg tablet 30 30 ValbrunLew MD 06/21/2018 07/03/2018 alprazolam 2 mg tablet 60 30 ValbrunLew MD 05/17/2018 05/17/2018 alprazolam 2 mg tablet 60 30 ValbrunLew MD 05/17/2018 05/17/2018 zolpidem tartrate 10 mg tablet 30 30 ValbrunLew MD 05/17/2018 05/17/2018 dextroamp-amphetamin 30 mg tab 60 30 ValbrunLew MD 04/12/2018 04/12/2018 alprazolam 2 mg tablet 60 30 ValbrunLew MD 04/12/2018 04/12/2018 dextroamp-amphetamin 30 mg tab 60 30 ValbrLew phelps MD 04/12/2018 04/12/2018 zolpidem tartrate 10 mg tablet 30 30 ValbrunLew MD 02/01/2018 02/01/2018 alprazolam 2 mg tablet 60 30 ValbrunLew MD 02/01/2018 02/01/2018 zolpidem tartrate 10 mg tablet 30 30 ValbrunLew MD 02/01/2018 02/01/2018 dextroamp-amphetamin 30 mg tab 60 30 ValbrunLew MD 12/28/2017 01/04/2018 dextroamp-amphetamin 30 mg tab 60 30 ValbrunLew MD 12/28/2017 01/04/2018 alprazolam 2 mg tablet 60 30 ValbrLew phelps MD 12/28/2017 01/04/2018 zolpidem tartrate 10 mg tablet 30 30 Lew Ralph MD 12/07/2017 12/07/2017 alprazolam 2 mg tablet 60 30 Lew Ralph MD 12/07/2017 12/07/2017 zolpidem tartrate 10 mg tablet 30 30 Lew Ralph MD 12/07/2017 12/07/2017 dextroamp-amphetamin 30 mg tab 60 30 Lew Ralph MD pt here requesting detox from heroin use , reports use since 1987 , current daily use 15 bags / day ivdu in tanisha ue , [facility] from [facility] , denies sharing , denies re-using , abscess > 1 year ago , OD x 3 . Pt is drowsy , falls asleep frequently during interview , awakened with difficulty with verbal stimuli . Latest heroin use today , pt is irritable when answering questions MMTP : @ [facility] , highest dose 90 mg , stopped going > 6 mo ago cocaine : 1 gr /day ivdu cannabis : occasional tobacco : 1 ppd fentanyl - denies denies benzodiazepine use , latest rx December 2018 Suboxone etoh use : " not that much " denies recent use , previously 12-pk beer every day x 1 year , starts drinking around noon , reports cravings , irritability , denies tremors , + blackouts , denies seizures , latest use several days ago , current symptoms as above. PMHX : htn , BPH , reports non- compliance w/ meds since d/c from this facility 02/18/19 . PSHX : tanisha inguinal hernia , pancreatic cyst 2012 ( [facility] ) PSych : ptsd , depression , anxiety - past meds Seroquel while in rehab SHX : homeless , unemployed , denies legal issues , fiances habit through [facility] - handling Exam Limitations: Clinical Condition, Intoxication - Ebola screening Have you traveled outside of the country in the last 21 days: No (N) Have you had contact with anyone from an Ebola affected area: No Do you have a fever: No - Review of Systems Constitutional: See HPI, Other (fatiuge- states has not slept in 3 days) EENT: reports: No Symptoms Reported Respiratory: reports: No Symptoms reported Cardiac: reports: No Symptoms Reported GI: reports: No Symptoms Reported : reports: No Symptoms Reported Musculoskeletal: reports: See HPI Integumentary: reports: See HPI Neuro: reports: No Symptoms reported Endocrine: reports: No Symptoms Reported Psychiatric: reports: Orientated x3, Agitated, other (drowsy , falls asleep frequently) Patient History - Patient Medical History Hx Anemia: No Hx Asthma: No Hx Chronic Obstructive Pulmonary Disease (COPD): No Hx Cancer: No Hx Cardiac Disorders: No Hx Congestive Heart Failure: No Hx Hypertension: Yes Hx Hypercholesterolemia: No Hx Pacemaker: No HX Cerebrovascular Accident: No Hx Seizures: No Hx Dementia: No Hx Diabetes: No Hx Gastrointestinal Disorders: No Hx Liver Disease: No Hx Genitourinary Disorders: No Hx Sexually Transmitted Disorders: No Hx Renal Disease (ESRD): No Hx Thyroid Disease: No Hx Human Immunodeficiency Virus (HIV): No Hx Hepatitis C: No Hx Depression: Yes Hx Suicide Attempt: No Hx Bipolar Disorder: No Hx Schizophrenia: No - Patient Surgical History Past Surgical History: Yes Hx Neurologic Surgery: No Hx Cataract Extraction: No Hx Cardiac Surgery: No Hx Lung Surgery: No Hx Breast Surgery: No Hx Breast Biopsy: No Hx Abdominal Surgery: Yes (R inguinal hernia repair in 2008) Hx Appendectomy: No Hx Cholecystectomy: No Hx Genitourinary Surgery: No Hx Section: No Hx Orthopedic Surgery: No Anesthesia Reaction: No - PPD History Date: 10/03/11 Results: 0MM - Smoking Cessation Smoking history: Current every day smoker Have you smoked in the past 12 months: Yes Aproximately how many cigarettes per day: 20 Hx Chewing Tobacco Use: No Initiated information on smoking cessation: Yes 'Breaking Loose' booklet given: 03/16/19 - Substances abused Heroin Substance route: Injection Frequency: Daily Amount used: 15 bags Age of first use: 15 Date of last use: 03/16/19 Cocaine Substance route: Injection Frequency: Daily Amount used: 40 dollars Age of first use: 15 Date of last use: 03/16/19 Crack Substance route: Smoking Frequency: Daily Amount used: 1 gram Age of first use: 15 Date of last use: 03/16/19 Alcohol Substance route: Oral Frequency: Daily Amount used: 12 cans of beer 24 oz each Age of first use: 13 Date of last use: 03/16/19 Admission Physical Exam BHS - Vital Signs Vital Signs: Vital Signs - 24 hr 03/16/19 22:01 Temperature 98.3 F Pulse Rate 65 Respiratory 16 Rate Blood Pressure 166/95 - Physical General Appearance: Yes: Disheveled, Intoxicated, Irritable HEENTM: Yes: EOMI, Hearing grossly Normal, Normocephalic, Normal Voice Respiratory: Yes: Chest Non-Tender, Lungs Clear, Normal Breath Sounds, No Respiratory Distress, No Accessory Muscle Use Neck: Yes: No masses,lesions,Nodules, Trachea in good position Cardiology: Yes: Regular Rhythm, Regular Rate, S1, S2, Other (QTc 382 02/14/19) Abdominal: Yes: Non Tender, Soft Extremities: Yes: Normal Range of Motion, Non-Tender Neurological: Yes: Disoriented, Depressed Affect, Other (drowsy) Integumentary: Yes: Track Alfaro (tanisha UE / LE) - Diagnostic (1) Opioid use with intoxication Current Visit: Yes Status: Acute (2) Cannabis abuse Current Visit: Yes Status: Acute (3) Cocaine dependence, uncomplicated Current Visit: Yes Status: Chronic (4) Nicotine dependence Current Visit: Yes Status: Chronic Qualifiers: Nicotine product type: cigarettes Breathalyzer - Breathalyzer Breathalyzer: 0 Urine Drug Screen - Test Device Lot number: [id number] Expiration date: 11/21/20 - Control Is test valid?: Yes - Results Drug screen NEGATIVE: No Urine drug screen results: THC-Marijuana, BILL-Cocaine, FEN-Fentanyl, MOP-Opiates , BZO-Benzodiazepines Inpatient Rehab Admission - Rehab Decision to Admit Inpatient rehab admission?: No
[2019-03-16] MEDS ORDERED: BISMUTH SUBSALICYLATE 524 MG/30 ML UD PO PRN (23:47)
[2019-03-16] MEDS ORDERED: MAGNESIUM CITRATE 300 ML BOTTLE PO PRN (23:47)
[2019-03-16] MEDS ORDERED: ACETAMINOPHEN 325 MG TABLET (FP) PO PRN (23:47)
[2019-03-16] MEDS ORDERED: PROCHLORPERAZINE MALEATE 5 MG TABLET PO PRN (23:47)
[2019-03-16] MEDS ORDERED: MAG HYDROX/AL HYDROX/SIMETH 30 ML UNIT-DOSE CUP PO PRN (23:47)
[2019-03-16] MEDS ORDERED: MAGNESIUM HYDROX 2400MG/30ML ORAL SUSPENSION 30 ML CUP PO PRN (23:47)
[2019-03-16] MEDS ORDERED: MENTHOL/PHENOL 1 EACH UD MM PRN (23:47)
[2019-03-16] MEDS ORDERED: IBUPROFEN 400 MG TABLET (FP) PO PRN (23:47)
[2019-03-16] MEDS ORDERED: ALBUTEROL SO4 0.083% IH SOL 2.5 MG/3 ML VIAL.NEB. NEB PRN (23:49)
[2019-03-17] MEDS ORDERED: METHADONE HCL 10 MG TABLET (FOR DETOX USE ONLY) PO ONE (06:00)
[2019-03-17] MEDS: PRENATAL VITAMINS W/ FOLIC ACID TABLET (FP) PO SCH (10:49)
--- NOTE | 2019-03-17 12:41 | PN ---
BHS COWS - Scale Resting Pulse: 0= [place] 80 or Below Sweatin= Chills/Flushing Restless Observation: 0= Sits Still Pupil Size: 1= Pupils >than Normal Bone or Joint Aches: 1= Mild Discomfort Runny Nose/ Eye Tearin= Nasal Congestion GI Upset > 30mins: 1= Stomach Cramp Tremor Observation of Outstretched Hands: 2= Slight Tremor Visible Yawning Observation: 1= 1-2x During Session Anxiety or Irritability: 2=Irritable/Anxious Goose Flesh Skin: 3=Piloerection COWS Score: 13 BHS Progress Note (SOAP) Subjective: sitting on the edge of the bed eating breakfast no trouble chewing swallowing food breath ease and even mild tremor with body aches Objective: 03/17/19 12:40 Vital Signs Temperature 97.9 F 03/17/19 06:14 Pulse Rate 62 03/17/19 09:25 Respiratory Rate 18 03/17/19 09:25 Blood Pressure 153/92 03/17/19 09:25 O2 Sat by Pulse Oximetry (%) lab see 01/201903/17/19 12:41 Assessment: 03/17/19 12:41 opiate withdrawal sx Plan: continue methadone detox regimen
--- NOTE | 2019-03-17 13:56 | CONSULT ---
[facility] Psychiatric Consult - Data Date of interview: 03/17/19 Admission source: [facility] Identifying data: Readmission to [facility] for this 48 y/o male self referred for detoxification. AURELIO issues : heroin, cocaine, cannabis, nicotine. Examined at [address] [place] [address]. Patient is single, no dependents, homeless, unemployed and supprted on panhandling in the streets. Substance Abuse History: Discussed with patient. Details in current [facility] report as follows : Smoking history: Current every day smoker. Have you smoked in the past 12 months: Yes. Aproximately how many cigarettes per day: 20. Hx Chewing Tobacco Use: No. - Substances abused. Heroin. Substance route: Injection. Frequency: Daily. Amount used: 15 bags. Age of first use: 15. Date of last use: 03/16/19. Cocaine. Substance route: Injection. Frequency: Daily. Amount used: 40 dollars. Age of first use: 15. Date of last use: 03/16/19. * * Crack. Substance route: Smoking. Frequency: Daily. Amount used: 1 gram. Age of first use: 15. Date of last use: 03/16/19. Alcohol. Substance route : Oral. Frequency: Daily. Amount used: 12 cans of beer 24 oz each. Age of first use: 13. Date of last use: 03/16/19 Medical History: Hypertension, bilateral inguinal hernia, right inguinal herniorraphy, pancreatic cyst and benign prostatic hyperplasia. Psychiatric History: Patient denies history of psychiatric hospitalizations. He has reportedly been diagnosed, in the past, with PTSD and medicated with quetiapine. Non-adherent to medicatiosn + formal psychiatric [employer] care. Mr Campbell denies history of suicide attempts. Physical/Sexual Abuse/Trauma History: Declines to revisit this domain. Additional Comment: Urine drug screen results: THC-Marijuana, BILL-Cocaine, FEN- Fentanyl, MOP-Opiates, BZO-Benzodiazepines. Noted. Mental Status Exam - Mental Status Exam Alert and Oriented to: Time, Place, Person Cognitive Function: Grossly Intact Patient Appearance: Unkempt, Disheveled (tattoos on both upper extremities.) Mood: Withdrawn Affect: Mood Congruent, Constricted Patient Behavior: Fatigued, Cooperative Speech Pattern: Delayed, Slurred Voice Loudness: Moderately Soft/Quiet Thought Process: Goal Oriented Thought Disorder: Not Present Hallucinations: Denies Suicidal Ideation: Denies Homicidal Ideation: Denies Insight/Judgement: Poor Sleep: Poorly, Difficulty falling asleep Appetite: Good Gait/Station: Other (not observed ; supine for entirety of interview) Psychiatric Findings - Problem List ([place] 1, 2,3) (1) Alcohol use disorder Current Visit: Yes Status: Chronic (2) Opioid use disorder Current Visit: Yes Status: Chronic (3) Cocaine use disorder Current Visit: Yes Status: Chronic (4) Cannabis abuse, uncomplicated Current Visit: Yes Status: Chronic (5) Nicotine dependence Current Visit: Yes Status: Chronic Qualifiers: Nicotine product type: cigarettes (6) Substance induced mood disorder Current Visit: Yes Status: Chronic (7) Insomnia Current Visit: Yes Status: Chronic (8) Non compliance w medication regimen Current Visit: Yes Status: Chronic - Initial Treatment Plan Initial Treatment Plan: Psychoeducation. Sleep hygiene. Detoxification. AA/NA meetings. Seroquel 100 mg po hs . Resumed at patient's request. Side effects/ benefits discussed with the patient. Verbal consent granted to MD. Perales.
[2019-03-17] MEDS: cloNIDine HCL 0.1 MG TABLET PO PRN (19:46)
[2019-03-17] MEDS: METHOCARBAMOL 500 MG TABLET PO PRN (22:19)
[2019-03-17] MEDS: THIAMINE HCL 100 MG TABLET (FP) PO SCH (22:19)
[2019-03-17] MEDS: QUEtiapine FUMARATE 100 MG TABLET (FP) PO SCH (22:19)
[2019-03-17] MEDS: MELATONIN 5 MG TABLETS PO PRN (22:20)
[2019-03-18] MEDS ORDERED: METHADONE HCL 10 MG TABLET (FOR DETOX USE ONLY) ONE (04:05)
[2019-03-18] MEDS ORDERED: METHADONE HCL 5 MG TABLET (FOR DETOX USE ONLY) ONE (04:06)
[2019-03-18] MEDS: cloNIDine HCL 0.1 MG TABLET PO PRN ×3 (05:41→21:43)
[2019-03-18] MEDS ORDERED: METHADONE (DETOX) 20 MG, METHADONE (DETOX) 5 MG PO ONE (06:00)
[2019-03-18] MEDS: PRENATAL VITAMINS W/ FOLIC ACID TABLET (FP) PO SCH (10:18)
[2019-03-18] MEDS: METHOCARBAMOL 500 MG TABLET PO PRN ×2 (10:18→21:43)
--- NOTE | 2019-03-18 13:10 | PN ---
BHS COWS - Scale Resting Pulse: 0= [place] 80 or Below Sweatin= Chills/Flushing Restless Observation: 0= Sits Still Pupil Size: 1= Pupils >than Normal Bone or Joint Aches: 1= Mild Discomfort Runny Nose/ Eye Tearin= Nasal Congestion GI Upset > 30mins: 1= Stomach Cramp Tremor Observation of Outstretched Hands: 2= Slight Tremor Visible Yawning Observation: 1= 1-2x During Session Anxiety or Irritability: 2=Irritable/Anxious Goose Flesh Skin: 0=Smooth Skin COWS Score: 10 BHS Progress Note (SOAP) Subjective: doing well with methadone detox regimen discuss aftercare with staff prefers methadone assisted treatment program encourage shrimp picker narcan from pharmacy Objective: 03/18/19 13:11 Vital Signs Temperature 96.7 F L 03/18/19 09:04 Pulse Rate 59 L 03/18/19 09:04 Respiratory Rate 18 03/18/19 09:04 Blood Pressure 153/88 03/18/19 09:04 O2 Sat by Pulse Oximetry (%) lab see 01/201903/18/19 13:12 bp elevation begin amlodipine 5 mg po Assessment: 03/18/19 13:13 opiate withdrawal sx Plan: continue methadone detox regimen
[2019-03-18] MEDS ORDERED: ALBUTEROL SO4 8 GM HFA INHALER IH PRN (14:21)
[2019-03-18] MEDS: amLODIPine BESYLATE 5 MG TABLET (FP) PO SCH (14:26)
[2019-03-18] MEDS: TAMSULOSIN HCL 0.4 MG CAP PO SCH (14:30)
[2019-03-18] MEDS: THIAMINE HCL 100 MG TABLET (FP) PO SCH (21:43)
[2019-03-18] MEDS: QUEtiapine FUMARATE 100 MG TABLET (FP) PO SCH (21:43)
[2019-03-18] MEDS: hydrOXYzine PAMOATE 25 MG CAPSULE (FP) PO PRN (21:43)
[2019-03-19] MEDS ORDERED: METHADONE HCL 10 MG TABLET (FOR DETOX USE ONLY) PO ONE (06:00)
[2019-03-19] MEDS: PRENATAL VITAMINS W/ FOLIC ACID TABLET (FP) PO SCH (10:10)
[2019-03-19] MEDS: TAMSULOSIN HCL 0.4 MG CAP PO SCH (10:10)
[2019-03-19] MEDS: amLODIPine BESYLATE 5 MG TABLET (FP) PO SCH (10:10)
[2019-03-19] MEDS: METHOCARBAMOL 500 MG TABLET PO PRN (10:10)
--- NOTE | 2019-03-19 11:38 | PN ---
BHS COWS - Scale Resting Pulse: 0= [place] 80 or Below Sweatin= Chills/Flushing Restless Observation: 0= Sits Still Pupil Size: 0= Normal to Room Light Bone or Joint Aches: 1= Mild Discomfort Runny Nose/ Eye Tearin= Nasal Congestion GI Upset > 30mins: 1= Stomach Cramp Tremor Observation of Outstretched Hands: 1= Tremor [place], Not Seen Yawning Observation: 1= 1-2x During Session Anxiety or Irritability: 1=Feels Anxious/Irritable Goose Flesh Skin: 0=Smooth Skin COWS Score: 7 BHS Progress Note (SOAP) Subjective: ate breakfast showered feeling better today ambulating on hallway social with peers in day room Objective: 03/19/19 11:37 Vital Signs Temperature 96.7 F L 03/19/19 09:24 Pulse Rate 71 03/19/19 09:24 Respiratory Rate 18 03/19/19 09:24 Blood Pressure 117/72 03/19/19 09:24 O2 Sat by Pulse Oximetry (%) lab see 01/2019 Assessment: 03/19/19 11:38 opiate withdrawal sx Plan: continue methadone detox regimen
[2019-03-19] MEDS: ACETAMINOPHEN 325 MG TABLET (FP) PO PRN (14:40)
[2019-03-19] MEDS: NICOTINE POLACRILEX 2 MG GUM BUC PRN (19:10)
[2019-03-19] MEDS: QUEtiapine FUMARATE 100 MG TABLET (FP) PO SCH (22:19)
[2019-03-19] MEDS: THIAMINE HCL 100 MG TABLET (FP) PO SCH (22:19)
[2019-03-20] MEDS ORDERED: METHADONE HCL 10 MG TABLET (FOR DETOX USE ONLY) ONE (04:06)
[2019-03-20] MEDS ORDERED: METHADONE HCL 5 MG TABLET (FOR DETOX USE ONLY) ONE (04:07)
[2019-03-20] MEDS ORDERED: METHADONE (DETOX) 10 MG, METHADONE (DETOX) 5 MG PO ONE (06:00)
[2019-03-20] MEDS: TAMSULOSIN HCL 0.4 MG CAP PO SCH (10:04)
[2019-03-20] MEDS: PRENATAL VITAMINS W/ FOLIC ACID TABLET (FP) PO SCH (10:04)
[2019-03-20] MEDS: amLODIPine BESYLATE 5 MG TABLET (FP) PO SCH (10:04)
[2019-03-20] MEDS: METHOCARBAMOL 500 MG TABLET PO PRN (10:04)
[2019-03-20] MEDS: NICOTINE POLACRILEX 2 MG GUM BUC PRN ×2 (13:35→18:20)
[2019-03-20] MEDS: ACETAMINOPHEN 325 MG TABLET (FP) PO PRN (13:35)
--- NOTE | 2019-03-20 16:06 | PN ---
BHS COWS - Scale Resting Pulse: 1= [place] 81-100 Sweatin= Chills/Flushing Restless Observation: 1= Difficult to Sit Still Pupil Size: 0= Normal to Room Light Bone or Joint Aches: 0= None Runny Nose/ Eye Tearin= None GI Upset > 30mins: 1= Stomach Cramp Tremor Observation of Outstretched Hands: 0= None Yawning Observation: 1= 1-2x During Session Anxiety or Irritability: 2=Irritable/Anxious Goose Flesh Skin: 0=Smooth Skin COWS Score: 7 S Progress Note (SOAP) Subjective: Chills, Sweating, Stomach Cramping, Fatigue. Objective: PATIENT A & O X 3. IN NO ACUTE DISTRESS. 03/20/19 16:07 Vital Signs Temperature 97.5 F L 03/20/19 14:06 Pulse Rate 83 03/20/19 14:06 Respiratory Rate 16 03/20/19 14:06 Blood Pressure 137/90 03/20/19 14:06 O2 Sat by Pulse Oximetry (%) LAB RESULTS FROM 02/14/2019 NOTED. PATIENT HAS HAD ELEVATED AST LEVELS ON PREVIOUS ADMISSIONS. 03/20/19 16:09 Assessment: 03/20/19 16:10 WITHDRAWAL SYMPTOMS. Plan: CONTINUE DETOX.
[2019-03-20] MEDS: QUEtiapine FUMARATE 100 MG TABLET (FP) PO SCH (22:27)
[2019-03-20] MEDS: MELATONIN 5 MG TABLETS PO PRN (22:27)
[2019-03-20] MEDS: THIAMINE HCL 100 MG TABLET (FP) PO SCH (22:27)
[2019-03-20] MEDS: hydrOXYzine PAMOATE 25 MG CAPSULE (FP) PO PRN (22:27)
[2019-03-21] MEDS ORDERED: METHADONE HCL 10 MG TABLET (FOR DETOX USE ONLY) PO ONE (06:00)
[2019-03-21] MEDS: PRENATAL VITAMINS W/ FOLIC ACID TABLET (FP) PO SCH (10:35)
[2019-03-21] MEDS: TAMSULOSIN HCL 0.4 MG CAP PO SCH (10:35)
[2019-03-21] MEDS: amLODIPine BESYLATE 5 MG TABLET (FP) PO SCH (10:35)
[2019-03-21] MEDS: METHOCARBAMOL 500 MG TABLET PO PRN (10:36)
--- NOTE | 2019-03-21 17:02 | PN ---
BHS COWS - Scale Resting Pulse: 1= [place] 81-100 Sweatin= No chills or Flushing Restless Observation: 1= Difficult to Sit Still Pupil Size: 0= Normal to Room Light Bone or Joint Aches: 2= Severe Diffuse Aches Runny Nose/ Eye Tearin= None GI Upset > 30mins: 0= None Tremor Observation of Outstretched Hands: 0= None Yawning Observation: 0= None Anxiety or Irritability: 4=Extreme Anxiety Goose Flesh Skin: 0=Smooth Skin COWS Score: 8 BHS Progress Note (SOAP) Subjective: Body Aches, Anxious (severe), Restless. Objective: PATIENT A & O X 3, OBSERVED AMBULATING ON DETOX UNIT UNASSISTED. IN NO ACUTE DISTRESS. 03/21/19 16:57 Vital Signs Temperature 98.2 F 03/21/19 13:25 Pulse Rate 85 03/21/19 13:25 Respiratory Rate 18 03/21/19 13:25 Blood Pressure 135/71 03/21/19 13:25 O2 Sat by Pulse Oximetry (%) RESULTS OF LABS FROM 02/14/2019 NOTED. 03/21/19 16:58 Assessment: 03/21/19 16:58 WITHDRAWAL SYMPTOMS. HYPERTENSION. Plan: CONTINUE DETOX. INCREASE DAILY DOSE OF AMLODIPINE TO 10 MG PO DAILY FOR ELEVATED BLOOD PRESSURE DESPITE PREVIOUS TREATMENT. DUE TO PERSISTENTLY ELEVATED BLOOD PRESSURE DESPITE TREATMENT ON DETOX UNIT AND DUE TO EXTREME ANXIETY AND CONCERN OVER LIKELIHOOD OF RELAPSE AFTER DISCHARGE, PATIENT GRANTED ONE ADDITIONAL DAY ON DETOX UNIT SO THAT HE WILL BE DISCHARGED ON 03/23/2019.
[2019-03-21] MEDS: ACETAMINOPHEN 325 MG TABLET (FP) PO PRN (17:35)
[2019-03-21] MEDS: NICOTINE POLACRILEX 2 MG GUM BUC PRN (17:36)
[2019-03-21] MEDS: THIAMINE HCL 100 MG TABLET (FP) PO SCH (21:51)
[2019-03-21] MEDS: MELATONIN 5 MG TABLETS PO PRN (21:51)
[2019-03-21] MEDS: QUEtiapine FUMARATE 100 MG TABLET (FP) PO SCH (21:51)
[2019-03-22] MEDS ORDERED: METHADONE HCL 5 MG TABLET (FOR DETOX USE ONLY) PO ONE (06:00)
[2019-03-22] MEDS: PRENATAL VITAMINS W/ FOLIC ACID TABLET (FP) PO SCH (09:30)
[2019-03-22] MEDS: METHOCARBAMOL 500 MG TABLET PO PRN (09:30)
[2019-03-22] MEDS: TAMSULOSIN HCL 0.4 MG CAP PO SCH (09:30)
[2019-03-22] MEDS ORDERED: amLODIPine BESYLATE 10 MG TABLET (FP) PO SCH (10:00)
[2019-03-22] MEDS ORDERED: METHADONE HCL 10 MG TABLET (FOR DETOX USE ONLY) PO ONE (10:00)
--- NOTE | 2019-03-22 11:51 | PN ---
BHS COWS - Scale Resting Pulse: 1= [place] 81-100 Sweatin= Chills/Flushing Restless Observation: 0= Sits Still Pupil Size: 0= Normal to Room Light Bone or Joint Aches: 1= Mild Discomfort Runny Nose/ Eye Tearin= Nasal Congestion GI Upset > 30mins: 1= Stomach Cramp Tremor Observation of Outstretched Hands: 1= Tremor [place], Not Seen Yawning Observation: 1= 1-2x During Session Anxiety or Irritability: 1=Feels Anxious/Irritable Goose Flesh Skin: 0=Smooth Skin COWS Score: 8 BHS Progress Note (SOAP) Subjective: doing well with methadone detox regimen ate breakfast tolerate food and fluid well discuss medication assisted treatment program citrus picker narcan from pharmacy Objective: 03/22/19 11:54 Vital Signs Temperature 96.7 F L 03/22/19 09:46 Pulse Rate 82 03/22/19 09:46 Respiratory Rate 18 03/22/19 09:46 Blood Pressure 143/92 03/22/19 09:46 O2 Sat by Pulse Oximetry (%) 03/22/19 11:54 see 01/2019 lab report Assessment: 03/22/19 11:55 opiate withdrawal sx Plan: continue methadone detox regimen
[2019-03-22] MEDS: ACETAMINOPHEN 325 MG TABLET (FP) PO PRN ×2 (14:15→22:05)
[2019-03-22] MEDS: NICOTINE POLACRILEX 2 MG GUM BUC PRN ×2 (14:16→22:06)
[2019-03-22] MEDS: THIAMINE HCL 100 MG TABLET (FP) PO SCH (22:04)
[2019-03-22] MEDS: QUEtiapine FUMARATE 100 MG TABLET (FP) PO SCH (22:05)
[2019-03-22] MEDS: MELATONIN 5 MG TABLETS PO PRN (22:05)
[2019-03-23] MEDS ORDERED: METHADONE HCL 5 MG TABLET (FOR DETOX USE ONLY) PO ONE (06:00)
[2019-03-23 06:29] VITALS: BP 100/59; PULSE 67; TEMP 97.8
--- NOTE | 2019-03-23 11:07 | DS ---
[facility] Detox Discharge Summary Admission Date: 03/16/19 Discharge Date: 03/23/19 - History Present History: Opioid Dependence Additional Comments: 48 years old male admitted on 03/16/19 for opiate withdrawal sx management did well with methadone detox regimen no complication through out the detox stay seen by psychiatrist no medical intervention patient is alert oriented x 3 ambulating steady gait speech clearly denies headache denies dizziness no shortness of breath denies chest pain denies weakness - Physical Exam Results Vital Signs: Vital Signs Temperature 97.8 F 03/23/19 06:28 Pulse Rate 67 03/23/19 06:28 Respiratory Rate 18 03/23/19 06:28 Blood Pressure 100/59 L 03/23/19 06:28 O2 Sat by Pulse Oximetry (%) Pertinent Admission Physical Exam Findings: opiate withdrawal sx lab see 01/2019 report - Treatment Hospital Course: Detox Protocol Followed, Detoxed Safely, Responded well, Discharged Condition Good, Rehab Referral Accepted Patient has Accepted [facility] Referral [facility] - Medication Discharge Medications: Ambulatory Orders Folic Acid 1 mg PO DAILY 10/01/18 Quetiapine Fumarate [Seroquel -] 100 mg PO HS 10/01/18 Thiamine HCl [Vitamin B-1] 100 mg PO DAILY 10/01/18 Naloxone HCl [Narcan] 4 mg NS ASDIR PRN #1 spray 03/18/19 Albuterol Sulfate Inhaler - [Ventolin HFA Inhaler -] 2 inh PO Q4H PRN #1 inhaler 03/22/19 Albuterol Sulfate Inhaler - [Ventolin HFA Inhaler -] 2 puff IH Q4H PRN #1 inhaler 03/22/19 Amlodipine Besylate [Norvasc -] 5 mg PO DAILY #30 tablet 03/22/19 Amlodipine Besylate [Norvasc -] 10 mg PO DAILY #30 tablet 03/22/19 Tamsulosin HCl [Flomax] 0.4 mg PO DAILY #30 capsule 03/22/19 - Diagnosis (1) Opioid dependence with withdrawal Status: Acute (2) BPH (benign prostatic hyperplasia) Status: Chronic Qualifiers: Lower urinary tract symptom presence: symptoms absent Qualified Code(s): N40.0 - Benign prostatic hyperplasia without lower urinary tract symptoms (3) Hypertension Status: Chronic Qualifiers: Hypertension type: essential hypertension Qualified Code(s): I10 - Essential (primary) hypertension (4) Nicotine dependence Status: Acute Qualifiers: Nicotine product type: cigarettes Substance use status: in withdrawal Qualified Code(s): F17.213 - Nicotine dependence, cigarettes, with withdrawal (5) Substance induced mood disorder Status: Suspected - AMA Did Patient Leave Against Medical Advice: No COWS (PN) - Opiate Withdrawal Resting Pulse: 0= [place] 80 or Below Sweatin= Chills/Flushing Restless Observation: 0= Sits Still Pupil Size: 0= Normal to Room Light Bone or Joint Aches: 1= Mild Discomfort Runny Nose/ Eye Tearin= None GI Upset > 30mins: 0= None Tremor Observation of Outstretched Hands: 1= Tremor [place], Not Seen Yawning Observation: 0= None Anxiety or Irritability: 1=Feels Anxious/Irritable Goose Flesh Skin: 0=Smooth Skin COWS Score: 4
== END 2019-03-23 08:35 | disposition home or self-care (01) | DRG 773 ==
LOC: YASAS 17:27 → Y3N 23:56
PROVIDERS: ADMIT Surgery; ATTEND Surgery
PROC: HZ2ZZZZ Detoxification Services for Substance Abuse Treatment (ICD-10-PCS; principal; 2019-03-16)
DX: F11.23 Opioid dependence with withdrawal (principal); F10.230 Alcohol dependence with withdrawal, uncomplicated; F14.20 Cocaine dependence, uncomplicated; F12.10 Cannabis abuse, uncomplicated; F17.213 Nicotine dependence, cigarettes, with withdrawal; F19.24 Other psychoactive substance dependence with psychoactive substance-induced mood disorder; I10 Essential (primary) hypertension; N40.0 Benign prostatic hyperplasia without lower urinary tract symptoms; G47.00 Insomnia, unspecified; Z91.19 Patient's noncompliance with other medical treatment and regimen
CPT/HCPCS: J0735

== ENCOUNTER 2021-10-30 15:54 | Inpatient (IN) | payer OTHER ==
[2021-10-30 18:33] VITALS: BMI 32.5
[2021-10-30] MEDS ORDERED: MAGNESIUM CITRATE 300 ML BOTTLE PO PRN (19:39)
[2021-10-30] MEDS ORDERED: MAG HYDROX/AL HYDROX/SIMETH 30 ML UNIT-DOSE CUP PO PRN (19:39)
[2021-10-30] MEDS ORDERED: IBUPROFEN 400 MG TABLET (FP) PO PRN (19:39)
[2021-10-30] MEDS ORDERED: NICOTINE POLACRILEX 2 MG GUM BUC PRN (19:39)
[2021-10-30] MEDS ORDERED: clonazePAM 0.5 MG ODT TABLETS SL PRN (19:39)
[2021-10-30] MEDS ORDERED: guaiFENesin 200 MG/10 ML 10 ML UNIT-DOSE CUPS PO PRN (19:39)
[2021-10-30] MEDS ORDERED: cloNIDine HCL 0.1 MG TABLET PO PRN (19:39)
[2021-10-30] MEDS ORDERED: BISMUTH SUBSALICYLATE 524 MG/30 ML PO PRN (19:39)
[2021-10-30] MEDS ORDERED: BENZOCAINE/MENTHOL (CHLORASEPTIC ) LOZENGE MM PRN (19:39)
[2021-10-30] MEDS ORDERED: DICYCLOMINE HCL 10 MG CAPSULE PO PRN (19:39)
[2021-10-30] MEDS ORDERED: ACETAMINOPHEN 325 MG TABLET (FP) PO PRN ×2 (19:39)
[2021-10-30] MEDS ORDERED: MAGNESIUM HYDROX 2400MG/30ML ORAL SUSPENSION 30 ML CUP PO PRN (19:39)
[2021-10-30] MEDS ORDERED: methaDONE HCL 10 MG TABLET (FOR DETOX USE ONLY) PO ONE (19:39)
[2021-10-30] MEDS ORDERED: NALOXONE HCL 0.4 MG/ML VIAL IM PRN (19:39)
[2021-10-30] MEDS ORDERED: P-EPHED 60MG/TRIPROLIDI 2.5MG TABLET PO PRN (19:39)
[2021-10-30] MEDS ORDERED: LOPERAMIDE HCL 2 MG CAPSULE PO PRN (19:39)
[2021-10-30] MEDS ORDERED: PROCHLORPERAZINE MALEATE 5 MG TABLET PO PRN (19:39)
[2021-10-31] MEDS ORDERED: methaDONE HCL 10 MG TABLET (FOR DETOX USE ONLY) PO ONE (00:30)
[2021-10-31] MEDS: THIAMINE HCL 100 MG TABLET (FP) PO SCH ×2 (00:38→22:18)
[2021-10-31] MEDS: MELATONIN 5 MG TABLETS PO SCH ×2 (00:38→22:18)
[2021-10-31] MEDS ORDERED: methaDONE HCL 10 MG TABLET (FOR DETOX USE ONLY) ONE (09:27)
[2021-10-31] MEDS: PRENATAL VITAMINS W/ FOLIC ACID TABLET (FP) PO SCH (10:26)
[2021-10-31] MEDS: NICOTINE 21 MG/24 HOURS TOPICAL PATCH TD SCH (10:26)
[2021-10-31 11:26] LABS: HEMOGLOBIN 14.1 GM/dL (11.7-16.9); MCH 30.6 pg (25.7-33.7); MCHC 34.3 g/dl (32.0-35.9); MEAN CELL VOLUME 89.3 fl (80-96); MEAN PLT VOLUME 8.6 fl (7.5-11.1); PLATELET COUNT 225 10^3/uL (134-434); RBC 4.59 M/mm3 (4.00-5.60); RDW 13.1 % (11.9-15.9); WHITE BLOOD COUNT 7.3 K/mm3 (4.0-10.0)
[2021-10-31 11:34] LABS: CHLORIDE 96 mmol/L (98-107); SODIUM 140 mmol/L (136-145)
[2021-10-31 12:18] LABS: BLOOD UREA NITROGEN 24.6 mg/dL (7-18); CALCIUM 9.2 mg/dL (8.5-10.1); CO2 35 mmol/L (21-32); GLUCOSE,RANDOM 122 mg/dL (74-106)
[2021-10-31 12:19] LABS: ALBUMIN 3.4 g/dl (3.4-5.0)
[2021-10-31 12:21] LABS: SGPT/ALT 47 U/L (13-61)
[2021-10-31 12:22] LABS: SGOT/AST 33 U/L (15-37); TOT PROT 6.8 g/dl (6.4-8.2)
[2021-10-31 12:24] LABS: ALK PHOS 89 U/L (45-117); BILIRUBIN,TOTAL 0.8 mg/dL (0.2-1)
[2021-10-31 12:27] LABS: ANION GAP 8 MMOL/L (8-16)
[2021-10-31] MEDS ORDERED: POTASSIUM CHLORIDE ORAL LIQUID 20 MEQ/15 ML PO ONE (14:45)
[2021-10-31] MEDS: POTASSIUM CHLORIDE ORAL LIQUID 20 MEQ/15 ML PO SCH (22:17)
[2021-11-01] MEDS ORDERED: methaDONE HCL 10 MG TABLET (FOR DETOX USE ONLY) PO ONE (10:00)
[2021-11-01] MEDS: METHOCARBAMOL 500 MG TABLET PO PRN (10:28)
[2021-11-01] MEDS: PRENATAL VITAMINS W/ FOLIC ACID TABLET (FP) PO SCH (10:30)
[2021-11-01] MEDS: POTASSIUM CHLORIDE ORAL LIQUID 20 MEQ/15 ML PO SCH (10:31)
[2021-11-01] MEDS: NICOTINE 21 MG/24 HOURS TOPICAL PATCH TD SCH (10:32)
[2021-11-01 14:08] LABS: SARS-CoV-2 NAA Not Detected (Not Detected)
[2021-11-02] MEDS: MELATONIN 5 MG TABLETS PO SCH ×2 (00:45→22:21)
[2021-11-02] MEDS: POTASSIUM CHLORIDE ORAL LIQUID 20 MEQ/15 ML PO SCH (00:46)
[2021-11-02] MEDS: THIAMINE HCL 100 MG TABLET (FP) PO SCH ×2 (00:46→22:21)
[2021-11-02] MEDS ORDERED: methaDONE HCL 10 MG TABLET (FOR DETOX USE ONLY) ONE (09:05)
[2021-11-02] MEDS: METHOCARBAMOL 500 MG TABLET PO PRN ×2 (09:54→22:20)
[2021-11-02] MEDS: PRENATAL VITAMINS W/ FOLIC ACID TABLET (FP) PO SCH (09:55)
[2021-11-02] MEDS: NICOTINE 21 MG/24 HOURS TOPICAL PATCH TD SCH (09:55)
[2021-11-03 09:05] VITALS: BP 137/85; PULSE 73; TEMP 96.8
[2021-11-03 09:56] LABS: PH,URINE 7.5 (5.0-8.0); URINE APPEARANCE CLEAR; URINE BILIRUBIN NEGATIVE (NEGATIVE); URINE COLOR YELLOW; URINE GLUCOSE (UA) NEGATIVE (NEGATIVE); URINE KETONE TRACE (NEGATIVE); URINE LEUK ESTERASE NEGATIVE (NEGATIVE); URINE NITRITE NEGATIVE (NEGATIVE); URINE PROTEIN NEGATIVE (NEGATIVE)
[2021-11-03] MEDS: NICOTINE 21 MG/24 HOURS TOPICAL PATCH TD SCH (09:57)
[2021-11-03] MEDS: PRENATAL VITAMINS W/ FOLIC ACID TABLET (FP) PO SCH (09:57)
[2021-11-03] MEDS: METHOCARBAMOL 500 MG TABLET PO PRN (09:57)
[2021-11-03] MEDS ORDERED: methaDONE HCL 10 MG TABLET (FOR DETOX USE ONLY) PO ONE (10:00)
[2021-11-03 11:01] LABS: HIV INTERPRETATION NEGATIVE (NEGATIVE)
== END 2021-11-03 11:10 | disposition home or self-care (01) | DRG 773 ==
LOC: YASAS 15:54 → Y3N 23:03
PROVIDERS: ADMIT Allergy & Immunology; ATTEND Surgery
PROC: HZ2ZZZZ Detoxification Services for Substance Abuse Treatment (ICD-10-PCS; principal; 2021-10-30)
DX: F11.23 Opioid dependence with withdrawal (principal); F14.20 Cocaine dependence, uncomplicated; F17.210 Nicotine dependence, cigarettes, uncomplicated; F19.24 Other psychoactive substance dependence with psychoactive substance-induced mood disorder; I10 Essential (primary) hypertension; N40.0 Benign prostatic hyperplasia without lower urinary tract symptoms; Z86.19 Personal history of other infectious and parasitic diseases; Z56.0 Unemployment, unspecified; Z59.00 Homelessness unspecified
CPT/HCPCS: 36415; 80053; 81003; 82947; 83036; 84132; 84520; 85027; 86780; 87389; C9803-CS; U0003; U0005